=== PATIENT | female | born 1970 ===

== ENCOUNTER 2019-10-17 14:00 | Emergency (ER) | payer SELFPAY ==
[2019-10-17 14:18] VITALS: BP 87/63; PULSE 104; RESP 16; TEMP 36.7; O2SAT 100
--- NOTE | 2019-10-17 14:28 | ED.DENTAL ---
HPI - Dental/Oral General Chief complaint: Dental/Oral Stated complaint: tooth abscess Time Seen by Provider: 10/17/19 14:18 Source: patient and RN notes reviewed Mode of arrival: ambulatory Limitations: no limitations History of Present Illness HPI Narrative: Patient presents today complaining of pain to upper anterior tooth with swelling to the gums x3 days. She noticed diffuse swelling to the right side of her face since yesterday that has been worsening since onset. Denies fever, shortness of breath, difficulty swallowing. She has been swishing with peroxide as well as taking ibuprofen, which has provided some relief. Patient does not currently have a dentist. MD Complaint: tooth pain Related Data Home Medications Medication Instructions Recorded Confirmed alprazolam 0.5 mg BID 10/17/19 10/17/19 amlodipine 2.5 mg PO DAILY 10/17/19 10/17/19 carvedilol 6.25 mg DAILY 10/17/19 10/17/19 hydrocodone-acetaminophen 1 tablet QID 10/17/19 10/17/19 Allergies Allergy/AdvReac Type Severity Reaction Status Date / Time No Known Allergies Allergy Unverified 11/23/16 12:43 Review of Systems Review of Systems: Narrative: CONSTITUTIONAL: Denies body aches, fever, chills, or sweats. EYES: Denies visual changes, redness, or discharge. ENT: Denies rhinorrhea, congestion, sore throat, or otalgia.+ Pain and facial swelling CARDIOVASCULAR: Denies chest pain, palpitations, or edema. RESPIRATORY: Denies cough or dyspnea. GASTROINTESTINAL: Denies abdominal pain, nausea, vomiting, or diarrhea. GENITOURINARY: Denies dysuria or hematuria. SKIN: Denies rash, itching, or wounds. MUSCULOSKELETAL: Denies back pain, joint pain, or myalgia. NEUROLOGIC: Denies headache, numbness, tingling, or weakness. PSYCH: Denies depression or anxiety. [facility] Past Medical History Medical History (Updated 10/17/19 @ 14:41 by Sandra Cortez, CUSTOMER SERVICE CORRESPONDENCE CLERK, ) COPD (chronic obstructive pulmonary disease) Hypertension Low back pain Social History Social History Gender identity (if verbalized by the patient): Female Comments At time of signature, I have reviewed and agree with nursing past medical, surgical, social and family history unless otherwise noted. Please see nursing chart for further information. There is no relevant family history pertinent to the presenting complaint Exam Narrative: Exam Narrative: GENERAL: Chronically ill-appearing, well-nourished, and in no acute distress. HEAD: Normocephalic, atraumatic. EYES: EOMI. No redness or drainage. Conjunctivae normal. ENT: Mucous membranes pink and moist. Nares clear. No rhinorrhea. Throat normal. Uvula midline. Obvious periapical abscess with moderate gum swelling adjacent to tooth #8. Moderate swelling of the right side of the face, extending below the right eye. No trismus or sublingual tenderness or swelling. NECK: Normal AROM. Supple. No lymphadenopathy. CHEST: No respiratory distress. Clear to auscultation. HEART: Regular rate and rhythm. No murmur appreciated. Normal peripheral pulses. EXTREMITIES: Normal range of motion. No edema. SKIN: Warm, dry, no rash. Capillary refill normal. Normal skin turgor. NEURO: No focal deficits. Alert and oriented x3. Gait steady. PSYCH: Normal affect. No signs of depression or anxiety. Course Vital Signs Vital signs: Vital Signs Temperature 98.1 F 10/17/19 14:18 Pulse Rate 104 H 10/17/19 14:18 Respiratory Rate 16 10/17/19 14:18 Blood Pressure 87/63 L 10/17/19 14:18 Pulse Oximetry 100 10/17/19 14:18 Temperature 98.1 F 10/17/19 14:18 Pulse Rate 104 H 10/17/19 14:18 Respiratory Rate 16 10/17/19 14:18 Blood Pressure 92/64 L 10/17/19 14:36 Pulse Oximetry 100 10/17/19 14:18 Reviewed MDM - Dental/Oral Differential Diagnosis Differential diagnosis: Likely gingival abscess, dental caries, toothache, dental abscess and fracture of tooth Critical Care Time Critical Care Time Critical Care Time: No Discharge P
[2019-10-17 14:36] VITALS: BP 92/64
== END 2019-10-17 14:37 | disposition home or self-care (01) ==
PROVIDERS: Emergency Provider Nurse Practitioner
DX: K04.7 Periapical abscess without sinus (principal); J44.9 Chronic obstructive pulmonary disease, unspecified; I10 Essential (primary) hypertension
CPT/HCPCS: 99213; G0463

== ENCOUNTER 2024-06-30 20:10 | Emergency (ER) | payer OTHER, SELFPAY ==
[2024-06-30] VITALS (29 sets, daily range): BP systolic 100–169; BP diastolic 67–99; PULSE 71–106; RESP 11–21; TEMP 36–36.8; O2SAT 94–100
--- NOTE | ~2024-06-30 | CT_ITS ---
EXAMINATION: CTA brain carotid DATE: 06/30/2024 20:59 INDICATION: AMS; severe headache, sudden onset TECHNIQUE: Computed tomographic angiography (CTA) of the head and neck was performed with 100 mL Omni paque-350 intravenous contrast. Automated exposure control and iterative reconstruction technique wer e employed. The dose-length product was 1063.20 mGy-cm. Maximum intensity projection and volume rende red 3D-reconstructions were created by the technologist on a separate workstation. COMPARISON: CT brain, same date. FINDINGS: CTA HEAD: No large vessel occlusion, aneurysm, high flow vascular malformation, nidus or extravasation. The lef t distal vertebral artery terminates in a cerebellar artery, a normal variant. Patent cerebral veins. Symmetric parenchymal enhancement. CTA NECK: Aortic arch and proximal great vessels: Normal arch anatomy. Minimal atherosclerotic calcifications a t the visualized aortic arch and proximal great vessels. Right common carotid, carotid bifurcation, and internal carotid artery: No plaque.There is 0% stenosi s of the proximal right internal carotid artery relative to normal distal artery lumen diameter (NASC ET criteria). Left common carotid, carotid bifurcation, and internal carotid artery: No plaque.There is 0% stenosis of the proximal left internal carotid artery relative to normal distal artery lumen diameter (NASCET criteria). Vertebral arteries: No significant plaque or stenosis. Right vertebral artery is dominant, Other findings: Biapical pleural scarring. Emphysematous changes. Degenerative changes in the cervica l spine. IMPRESSION: No large vessel intracranial occlusion, high-grade intracranial stenosis, or aneurysm. No carotid or vertebral artery occlusion, dissection, or significant stenosis. Reviewed, dictated and finalized at location K. IMPRESSION: No large vessel intracranial occlusion, high-grade intracranial stenosis, or an eurysm. No carotid or vertebral artery occlusion, dissection, or significant stenosis.
--- NOTE | ~2024-06-30 | CT_ITS ---
EXAMINATION: CT brain wo con DATE: 06/30/2024 20:59 INDICATION: AMS . TECHNIQUE: Computed tomography (CT) of the head was performed without intravenous contrast. The mA wa s adjusted according to patient size. Iterative reconstruction technique was employed. The dose-lengt h product was 605.33 mGy-cm. COMPARISON: None. FINDINGS: No acute intracranial hemorrhage or extra-axial fluid collection. No hydrocephalus, mass, or herniation. No acute ischemic infarct. Unremarkable dural venous sinus attenuation. No acute osseous abnormality. The aerated spaces are clear. IMPRESSION: No acute intracranial process. Reviewed, dictated and finalized at location K.
--- OUTSIDE RECORDS SUMMARY | 2024-06-30 20:11 | XMS_ITS | Encounter Summary ---
Author Organization [facility] Address [address] [place] [address] Care Team Providers Care Sheet Rock Applicator Name Role Phone Unavailable Primary Care Provider Unavailabl e Encounter Details Date Type Department Care Team (Late st Contact Info) Description 03/03/2024 Results Follow-Up [facility] Heart and Vascular - [address] [facility] [address] [address] [facility] [address] [place] [address] [place] [address] [facility] [address] [place] [address] BRAIN NATRIURETIC PEPTIDE, BNP OR PROBNP Social History Tobacco Use Types Packs/Day Years Used Date Smoking Tobacco: Every Day Cigarettes Smokeless Tobacco: Never Alcohol Use Standard Drinks/Week Comments Yes 0 (1 standard drink = 0.6 oz pur e alcohol) occas Feeling Safe Answer Date Recorded Are you in a relationship wi th someone who hurts you emotionally and/or physically? 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 Gender Identity Not on file Sexual Orientation Not on file Occupation Industry Job Start Date Job End Date Not on file Not on file Not on file Not on file documented as of this encounter Plan of Treatment Upcoming Encounters Date Type Department Care Team (Late st Contact Info) Description 09/22/2024 8:45 AM CDT Office Visit [facility] Heart and Vascular - [address] [facility] [address] [place] [address] [place] [address] [facility] [address] [place] [address] 02/16/2025 10:45 AM MERCHANDISING MANAGER Office Visit [facility] Heart and Vascular - [address] [facility] [address] [place] [phone] [place] [address] [facility] [address] [place] [address] documented as of this encounter Visit Diagnoses Not on filedocumented in this encounter
--- OUTSIDE RECORDS SUMMARY | 2024-06-30 20:12 | XMS_ITS | Encounter Summary ---
Author Organization [facility] Address [address] [place] [address] Care Team Providers Care Geothermal Installer Name Role Phone Unavailable Primary Care Provider Unavailabl e Encounter Details Date Type Department Care Team (Late st Contact Info) Description 03/03/2024 Results Follow-Up [facility] Heart and Vascular - [address] [facility] [address] [address] [facility] [address] [place] [address] [place] [address] [facility] [address] [place], [place] [id number] BASIC METABOLIC PANEL, CBC WITHOUT DIFFERENTIAL, BASIC METABOLIC PANEL, CBC WITH DIFFERENTIAL Social History Tobacco Use Types Packs/Day Years [...] on file 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 T COATING MACHINE OPERATOR documented in this encounter Plan of Treatment Upcoming Encounters Date Type Department Care Team (Late st Contact Info) Description 09/22/2024 8:45 AM CDT Office Visit [facility] Heart and Vascular - [address] [phone] [place] [address] [address] 02/16/2025 10:45 AM PAINT COATING MACHINE OPERATOR Office Visit [facility] Heart and Vascular - [address] [phone] [place] [address] [address] documented as of this encounter Visit Diagnoses Not on filedocumented in this encounter
--- OUTSIDE RECORDS SUMMARY | 2024-06-30 20:12 | XMS_ITS | Encounter Summary ---
Author Organization [facility] Healthcare Address [address] [place] [address] Care Team Providers Care Flat Clothier Name Role Phone Reyna Guerra MD Unavailable [phone] Salvador Martinez MD Unavailable [phone] Andre Velarde MD Unavailable [phone] Parker Rubio MD Unavailable [phone] Karlene Jacobo AIRBRUSH ARTIST PHOTOGRAPHY Primary Care Provider [phone] Encounter Details Date Type Department Care Team (Late st Contact Info) Description 05/04/2024 Results Follow-Up [facility] Medical Group Pulmonology [address] [facility] [address] [place] [address] Lee Ann Johnson MD [address] [facility] 200 [place] [address] Portable/Home Sleep Study Social History Tobacco Use Types Packs/Day Years Used Date Smoking Tobacco: Every Day Cigarettes 0.5 33.1 Started: 1986; Last attempted to quit: 04/02/2019 Smokeless Tobacco: Never Alcohol Use Standard Drinks/Week Comments Yes 0 (1 standard drink = 0.6 oz pur e alcohol) AUDIT-C Answer Date Recorded Q1: How often do you have a drink containing alc ohol? Monthly or less 04/09/2024 Q2: How many drinks containi ng alcohol do you have on a typical day when you are drinking? 1 or 2 04/09/2024 Q3: How often do you have si x or more drinks on one occasion? 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 Gender Identity Not on file Sexual Orientation Not on file documented as of this encounter Plan of Treatment Scheduled Procedures Name Priority Associated Diagnoses Date/Ti me COLONOSCOPY Colon cancer screening documented as of this encounter Visit Diagnoses Not on filedocumented in this encounter Care Teams Flat Clothier Relationship Specialty Start Date End Date Karlene Jacobo NP [address] [place] [address] [place] [address] PCP - General Family Medicine 04/09/24 Reyna Guerra MD [address] [place] [address] [address] Nam[address] AND[address] [place] [address] Consulting Physician Obstetrics and Gynecology 01/27/19 Salvador Martinez MD [address] [facility] [address] [place] [address] Consulting Physician Rheumatology 09/04/18 Andre Velarde MD [address] [facility] [address] [place] [address] Referring Physician Psychiatry 09/28/19 [place] [address] [place] [address] Referring Physician Cardiovascular Disease 09/28/19 documented as of this encounter
--- OUTSIDE RECORDS SUMMARY | 2024-06-30 20:12 | XMS_ITS | Encounter Summary ---
Author Organization [facility] Address [address] [place] [address] Care Team Providers Care Digital Strategist Name Role Phone Michael Figueroa MD Primary Care Provider [phone] Encounter Details Date Type Department Care Team (Late st Contact Info) Description 05/10/2008 Outpatient Historical [facility], Authorized P NO ADDRESS ON FILE Bonnie Whitley MD NO ADDRESS ON FILE Alcoh Dep NEC/NOS, Unspec (CMS/HCC); Depressive Disorder, not Elsewhere Classified; Sedative, Hypnotic or Anxiolytic Dependence, Unspecified Abuse (CMS/HCC); Tobacco Use Disorder; Suicidal Ideation Social History Tobacco Use Types Packs/Day Years Used Date Smoking Tobacco: Never Assessed Comments Unknown Sex and Gender Information Value Date Recorded Sex Assigned at Not on file Legal Sex Female 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 Gender Identity Not on file Sexual Orientation Not on file documented as of this encounter Plan of Treatment Upcoming Encounters Date Type Department Care Team (Late st Contact Info) Description 09/22/2024 8:45 AM CDT Office Visit [facility] Heart and Vascular - [address] [facility] [address] [place] [phone] [place] [address] [address] [place] [address] 02/16/2025 10:45 AM SENIOR DIRECTOR MARKETING Office Visit [facility] Heart and Vascular - [address] [facility] [address] [place] [phone] [place] [address] [place] [address] documented as of this encounter Procedures Procedure Name Priority Date/Time Associated Diagnosis Comments POC GLUCOSE Routine 05/10/2008 10:56 AM CDT POC URINALYSIS DIPSTICK AUTOMATED Routine 05/10/2008 10:52 AM CDT POC , URINE Routine 05/10/2008 10:52 AM CDT DRUG SCREEN, URINE Stat 05/10/2008 10 :35 AM CDT documented in this encounter Results * (ABNORMAL) POC GLUCOSE (05/10/2008 10:56 AM CDT) GLUCOSE POC 126(H) 65 - 99 mg/dL [facility] Venous blood specimen (specimen) 05/10/2008 10:56 AM CDT 05/10/2008 10:56 AM CDT us Authorized P Er POINT OF CARE TESTING Final Resu lt INTERFACE SYSTEM Refer to clinic/hospital department [facility] CLIA# [id number] [address] [place] [address] * POC , URINE (05/10/2008 10:52 AM CDT) SPECIFIC GRAVITY UA 1.020 1.001 - 1.035 [facility] , URINE POC Negative Negative [facility] Urine specimen (specimen) 05/10/2008 10:52 AM CDT 05/10/2008 10:52 AM CDT us Authorized P Er POINT OF CARE TESTING Final Resu lt INTERFACE SYSTEM Refer to clinic/hospital department [facility] CLIA# [id number] [address] [place] [address] * (ABNORMAL) POC URINALYSIS DIPSTICK AUTOMATED (05/10/2008 10:52 AM CDT) PH UA 6.0 5.0 - 8.0 [facility] KETONES UA 1+ (Small)(A) Negative [facility] CLARITY UA Clear [facility] BLOOD UA Negative Negative [facility] PROTEIN UA 1+(A) Negative [facility] LEUKOCYTE ESTERASE UA 1+(A) Negative [facility] UROBILINOGEN UA 1+ (1 mg/dL) <=1 mg/dL [facility] SPECIFIC GRAVITY UA 1.020 1.001 - 1.030 [facility] GLUCOSE UA Negative Negative [facility] COLOR UA Yellow [facility] NITRITE UA Positive(A) Negative [facility] BILIRUBIN UA 1+(A) Negative [facility] 05/10/2008 10:5 2 AM CDT 05/10/2008 10:52 AM CDT us Authorized P Er POINT OF CARE TESTING Final Resu lt INTERFACE SYSTEM Refer to clinic/hospital department [facility] CLIA# [id number] [address] [place] [address] * DRUG SCREEN, URINE (05/10/2008 10:35 AM CDT) COMMENT, TOXICOLOGY See Separate Comment [facility] Comment: Urine sample was not handled as a legal specimen and was received without a chain of custody. The result should be used only for medical purposes. False positive and erroneous results can occur due to cross-reacting substances and other factors. Depending on the clinical context, confirmation of all presumptive positive results by a more specific alternate method is recommended. A negative result indicates the analyte, if present, is below the screening threshold. Drug Ref. Range Screening Threshold Amphetamines Negative 1000 ng/mL Barbiturates Negative 200 ng/mL Benzodiazepines Negative 300 ng/mL Cannabinoids Negative 50 ng/mL Cocaine Metabolites Negative 300 ng/mL Opiates Negative 300 ng/mL Phencyclidine Negative 25 ng/mL The cut-off threshold, known cross-reactive compounds, drugs,and specificity information for each of the urine drugs of abuse are available on the [facility] Intranet at: [email or web address] Select: Lab Policies & Procedures Select: Drugs of Abuse-[facility] To inquire about any potential cross-reactivity of a specific drug not listed at this site, please contact the Chemistry Lab at . AMPHETAMINE QUAL, URINE Negative Negative [facility] BARBITURATE QUAL, URINE Negative Negative [facility] BENZODIAZEPINE QUAL, URINE Presumptive Positive Negative [facility] CANNABINOIDS QUAL, URINE Presumptive Positive Negative [facility] COCAINE QUAL URINE Negative Negative [facility] OPIATE QUAL, URINE Negative Negative [facility] PCP QUAL, URINE Negative Negative [facility] Urine specimen (specimen) 05/10/2008 10:35 AM CDT 05/10/2008 11:01 AM CDT us Bonnie Whitley MD URINE ORDERABLES Edited INTERFACE SYSTEM Refer to clinic/hospital department [facility] CLIA# [id number] [address] [place] [address] documented in this encounter Visit Diagnoses Diagnosis Other and unspecified alcohol dependence, unspecified drinking behavior (CMS/HCC) Other and unspecified alcohol dependence, unspecified drinking behavior Depressive disorder, not elsewhere classified Sedative, hypnotic or anxiolytic dependence, unspecified (CMS/HCC) Sedative, hypnotic or anxiolytic dependence, unspecified Tobacco use disorder Suicidal ideation documented in this encounter Care Teams Digital Strategist Relationship Specialty Start Date End Date Michael Figueroa MD [address] [address] PCP - General Internal Medicine 02/08/24 02/10/24 documented as of this encounter
--- OUTSIDE RECORDS SUMMARY | 2024-06-30 20:12 | XMS_ITS | Referral Summary ---
Author Organization [facility] Address [address] [place] [address] Care Team Providers Care [employer] Member Name Role Phone Reyna Guerra MD Unavailable Salvador Martinez MD Unavailable Andre Velarde MD Unavailable [phone] Parker Rubio MD Unavailable Karlene Jacobo SPREADER BOX OPERATOR Primary Care Provider [phone] Encounters Date Type Department Care Team Description 06/16/2024 12:27 PM CDT - 06/16/2024 11:59 PM CDT Hospital Encounter [facility] Respiratory [address] [place] [address] Simple chronic bronchitis (HCC); Chronic systolic congestive heart failure (HCC); Cigarette nicotine dependence without complication Discharge Disposition: Discharge to home or self care 06/16/2024 12:10 PM CDT - 06/16/2024 11:59 PM CDT Hospital Encounter [facility] [address] [place] [address] Personal history of nicotine dependence Discharge Disposition: Discharge to home or self care 05/08/2024 9:30 AM CDT Office Visit [facility] Pulmonology [address] [place] [address] [address] [place] [address] Lee Ann Johnson MD LYNN (obstructive sleep apnea) (Primary Dx); Psychophysiological insomnia; Cigarette nicotine dependence without complication; Simple chronic bronchitis (HCC); Restless legs syndrome (RLS); Non-seasonal allergic rhinitis due to pollen 05/04/2024 Results Follow-Up [facility] Pulmonology [address] [place] [phone] Lee Ann Johnson MD Portable/Home Sleep Study 04/23/2024 [facility] Sleep Lab [address] [place] [address] Chelsi Reddy [facility] Sleep Study Ordered 04/20/2024 10:50 AM CDT - 04/20/2024 11:59 PM CDT Hospital Encounter [facility] [address] [facility] [address] [facility] [place] [place] [address] Hypersomnia, recurrent [G47.13] (Primary Dx); Chronic obstructive pulmonary disease, unspecified COPD type (HCC); Congestive heart failure, unspecified HF chronicity, unspecified heart failure type (HCC); Atrial fibrillation, unspecified type (HCC); Snoring; Other abnormalities of breathing Discharge Disposition: Discharge to home or self care 04/09/2024 2:30 PM PIN DRAFTER OPERATOR Office Visit [facility] Pulmonology [address] [place] [phone] Lee Ann Johnson MD Simple chronic bronchitis (HCC) (Primary Dx); Chronic systolic congestive heart failure (HCC); Cigarette nicotine dependence without complication; Personal history of nicotine dependence; Psychophysiological insomnia; LYNN (obstructive sleep apnea); Non-seasonal allergic rhinitis due to pollen from Last 3 Months Allergies Active Allergy Reactions Criticality Noted Date Comments Codeine Nausea only Low 10/22/2011 Metronidazole Hives Medium 09/10/2013 Medications nitroglycerin (NITROSTAT) 0.4 mg SL tablet 0 8 Active cyclobenzaprine (FLEXERIL) 10 mg tablet Take 1 tablet (10 mg total) by mouth 3 (three) times a day as needed for muscle spasms 30 tablet 9 Active albuterol HFA (PROVENTIL HFA,VENTOLIN HFA,PROAIR HFA) 90 mcg/actuation inhalerIndications :COPD, moderate (HCC) Inhale 2 puffs every 6 (six) hours as needed for wheezing or shortness of breath 1 each 11 2 Active Spiriva Respimat 2.5 mcg/actuation inhaler INHALE 2 PUFFS BY MOUTH ONCE DAILY. 4 g 3 Active traZODone (DESYREL) 50 mg tablet Take 1 tablet (50 mg total) by mouth nightly 30 tablet 1 3 Active rosuvastatin (CRESTOR) 20 mg tablet Take 1 tablet (20 mg total) by mouth daily 30 tablet 3 3 Active suvorexant (BELSOMRA) 10 mg tablet Take 1 tablet (10 mg total) by mouth daily 30 tablet 5 3 Active fluticasone propionate (FLONASE) 50 mcg/actuation nasal spray SHAKE LIQUID AND USE 2 SPRAYS IN EACH NOSTRIL DAILY 16 g 3 Active PARoxetine (PAXIL) 10 mg tablet TAKE 1 TABLET(10 MG) BY MOUTH EVERY MORNING 90 tablet 1 3 Active meloxicam (MOBIC) 15 mg tabletIndications: Primary osteoarthritis of left hand TAKE 1 TABLET(15 MG) BY MOUTH DAILY 30 tablet 3 3 Active carvediloL (COREG) 6.25 mg tablet TAKE 1 TABLET(6.25 MG) BY MOUTH TWICE DAILY 180 tablet 4 Active ezetimibe (ZETIA) 10 mg tablet Take 1 tablet (10 mg total) by mouth daily 5 Active buPROPion XL (WELLBUTRIN XL) 150 mg 24 hr tablet Take 1 tablet (150 mg total) by mouth daily 30 tablet 3 5 Active furosemide (LASIX) 20 mg tablet 4 Active Anoro Ellipta 62.5-25 mcg/actuation blister with device daily Active Active Problems Problem Noted Date Diagnosed Date LYNN (obstructive sleep apnea) 04/09/2024 Psychophysiological insomnia 04/09/2024 Personal history of nicotine dependence 04/09/19 Cigarette nicotine dependence without complicati on 04/09/2024 Simple chronic bronchitis 04/09/2024 Primary osteoarthritis of left hand 07/05/2022 Assessment & Plan (07/05/2022 4:28 PM CDT): Stable. Will continue meloxicam as prescribed. Alcohol use disorder, moderate, in controlled en vironment 03/13/2021 Assessment & Plan (03/13/2021 4:40 PM PIN DRAFTER OPERATOR): 1. Chronic, poorly controlled 2. Recommended decreased intake of alcohol, especially in the setting of benzodiazepines from her psychiatrist Restless legs syndrome (RLS) 03/13/2021 Assessment & Plan (03/13/2021 4:40 PM PIN DRAFTER OPERATOR): 1. Chronic, well controlled 2. Continue as needed ropinirole Neuropathy 12/29/2020 Assessment & Plan (03/13/2021 4:38 PM PIN DRAFTER OPERATOR): 1. Chronic, poorly controlled 2. Has MRI scheduled for tomorrow 3. They will have the imaging center send me the results as well as her temporary receptionist Assessment & Plan (02/27/2021 2:21 PM PIN DRAFTER OPERATOR): She complains of inability to dorsiflex her L foot accompanied by numbness throughout the foot, intermittent cold sensation, and a restless feeling in her distal LE. These symptoms have led her to fall on numerous occasions. Denies injury preceding symptom onset. NCS/EMG on 02/07 which showed left peroneal neuropathy and superimposed chronic left L5 radiculopathy. At this time will obtain MRI Lspine. Once again recommend she arrange for neuro evaluation, ultimately may need to see neurosurgery. Will defer scheduled follow up at this time, she will be called with MRI findings and recommendations. Assessment & Plan (12/29/2020 4:54 PM PIN DRAFTER OPERATOR): Chelsi returns today after having last been seen in April 2019. She complains of inability to dorsiflex her L foot accompanied by numbness throughout the foot, intermittent cold sensation, and a restless feeling in her distal LE. These symptoms have led her to fall on numerous occasions. Denies injury preceding symptom onset. Denies any other associated or new symptoms. Her exam is perplexing today due to its inconsistencies. At times she is unable to dorsiflex the foot but at other times she does. Diminished vibratory sense throughout the L foot. Normal pedal pulses. Her strength is intact throughout. 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 Ultimately she may require neurology evaluation. To begin evaluation, will check serologies as below as well as a LLE NCS/EMG. Plan for follow up in 2-3 weeks (once studies are done) and review results. Chronic pain syndrome 02/18/2020 Weight loss 09/29/2019 Chronic prescription opiate use 09/28/2019 Allergic rhinitis 04/02/2019 Sleep disturbance 12/26/2018 Assessment & Plan (07/05/2022 4:27 PM CDT): Chronic worsening problem. Continue Trazodone and Belsomra as prescribed. Fibromyalgia 12/01/2018 Assessment & Plan (12/28/2020 2:28 PM PIN DRAFTER OPERATOR): On Effexor 37.5 mg bid with improvement in her mood and pain, will continue. Will consider dose titration in the future if needed. Encouraged to participate in routine exercise such as [place] [employer]. Plan for follow up in 4 months or sooner as needed. Assessment & Plan (04/13/2019 2:06 PM PIN DRAFTER OPERATOR): On Effexor 37.5 mg bid with improvement in her mood and pain, will continue. Will consider dose titration in the future if needed. Encouraged to participate in routine exercise such as [place] [employer]. Plan for follow up in 4 months or sooner as needed. Assessment & Plan (01/12/2019 2:35 PM PIN DRAFTER OPERATOR): Previously treated with Lyrica with loss of response over time and amitriptyline which caused severe sedation. Cymbalta worsened depression. Now on Effexor 37.5 mg bid with improvement in her mood and pain. Admits that she still has widespread pain rated 5/10 but as it is significantly improved from prior and she wishes to limit her Effexor dose as able, will continue Effexor 37.5 mg bid and monitor. Will consider dose titration in the future. Plan for follow up in 3 months or sooner as needed. Assessment & Plan (12/08/2018 2:22 PM CDT): Previously treated with Lyrica with loss of response over time and amitriptyline which caused severe sedation. Last month started trial of Cymbalta, unfortunately pt notes intolerance due to worsening of depression. She took one dose of her mother's Effexor which she feels helped her pain and has since discussed this with her psychiatrist, whom she states approved a switch to Effexor. At this time will begin Effexor 37.5 mg bid and monitor response, follow up in 4-6 weeks to reassess. Polyarthralgia 10/02/2018 Overview (10/10/2018): US right hand/wrist (10/07/18): Mild effusions and power doppler on examination which will have to be correlated clinically. Marked synovial thickening in the wrist. No other significant synovial thickening identified. Grade 1 effusion and grade 1 power doppler in the wrist. No other significant effusions or power doppler activity identified. Xray bilat hands (10/10/18): Left hand: mild CMC OA, old ununited avulsion fracture of proximal phalanx of 2nd digit. Right hand: wnl Xray bilat feet (10/10/18): mild bilat 1st mtp joint degenerative changes Xray SI joints (10/10/18): mild/moderate sclerotic changes of right SI joint with joint space narrowing Assessment & Plan (10/20/2018 4:54 PM CDT): 48yoF with multiple painful joints and prolonged AM stiffness for 2+ hours each day. NSAIDs with moderate benefit and recent Medrol Dosepack with significant, though transient, relief. She notes a history of fibromyalgia, initially denied having been treated with gabapentin, Lyrica, Cymbalta, TCAs, or Savella in the past; today states that she has been prescribed Lyrica for the last 15 years, initially with significant response. Also states that she had been prescribed amitriptyline which caused severe sedation. Our workup shows unremarkable serologies to date, XR with degenerative changes, and ultrasound without significant inflammatory changes. At present suspect that her pain complaints are 2/2 an overlap of fibromyalgia and OA. As the lab received the specimen for her AVISE panel outside the allowed time frame, will redraw this today and pt will be called with results. If the AVISE is negative, then will likely recommend treatment with Cymbalta 30 mg once daily. Follow up in 6 weeks or sooner as needed. Assessment & Plan (10/02/2018 4:45 PM CDT): 48yoF with multiple painful joints and prolonged AM stiffness for 2+ hours each day. NSAIDs with moderate benefit and recent Medrol Dosepack with significant, though transient, relief. She notes a history of fibromyalgia, denies having been treated with gabapentin, Lyrica, Cymbalta, TCAs, or Savella in the past. By exam she has questionable swelling in a few joints but tenderness throughout most of her joints as well as soft tissue tenderness. Question possible overlap of an inflammatory arthritis with fibromyalgia and known OA. To fully evaluate will check appropriate serologies, xrays, and ultrasound with plan for follow up in 2 weeks to review results and to discuss treatment options. High risk medication use 09/19/2018 Hyperglycemia 09/23/2017 Generalized anxiety disorder 04/08/2017 Moderate major depression 04/08/2017 Assessment & Plan (07/05/2022 4:27 PM CDT): Chronic worsening problem. PHQ 9 score is 15. She denies SI/HI. Start paroxetine 10 mg daily. Hay fever 06/01/2016 Gastroesophageal reflux disease 11/24/2014 Menorrhagia with irregular cycle 08/03/2014 Tobacco use 08/03/2014 Assessment & Plan (09/18/2021 7:33 AM CDT): 1. Patient currently smokes 3-4 cigarettes a day 2. Advised patient to quit smoking and discussed its side effects 3. Active phase of smoking cessation 4. Discussed avoidance of smoking triggers and stress relieving techniques 5. Patient would not like to pursue medical management at this time. 6. Estimated quit date is 2021 7. Patient will f/u in 6 months 8. I spent 3 [id number]-[id number] minutes counseling patient regarding tobacco cessation Knee pain 05/04/2014 Congestive heart failure 06/27/2013 Overview (05/18/2016): CHF (congestive heart failure) Vitamin D deficiency 03/31/2012 Back pain 12/31/2011 COPD, moderate (CMS/HCC) 10/22/2011 Assessment & Plan (07/05/2022 4:26 PM CDT): Chronic stable condition. Will continue Spiriva and albuterol as needed. Smoking cessation advised. Assessment & Plan (05/19/2021 1:59 PM CDT): 1. Chronic, poorly controlled 2. 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 Chronic, poorly controlled 2. Will restart Spiriva in place order for albuterol inhaler Stress-induced cardiomyopathy 07/23/2011 Bipolar affective disorder 04/16/2010 Fibrocystic breast changes 04/16/2010 Immunizations Immunization Administration Dates Next Due Influenza, Quadrivalent, Louise l Culture-based MDCK, Antibiotic Free, Intramuscular 01/20/2018 Influenza, Quadrivalent, Spl it, Preservative Free, Intradermal 12/07/2016 Influenza, Quadrivalent, Spl it, Preservative Free, Intramuscular 12/26/2018,11/24/2014 Influenza, Trivalent, Preser vative Free, Intramuscular 02/10/2199,12/30/2012,12/29/2010 Influenza, Trivalent, Split, Preservative Free, Intradermal 12/07/2016,11/16/2015 Influenza, Unspecified 12/13/2020(Deferr ed: Patient Refused),11/25/2019(Deferred: Patient Refused),01/20/2018 Pneumococcal Conjugate PCV 13 05/04/2014 Pneumococcal Polysaccharide PPV23 11/14/2011 Tdap 07/05/2022,12/31/2011 Social History Tobacco Use Types Packs/Day Years Used Date Smoking Tobacco: Every Day Cigarettes 0.5 33.1 Started: 1986; Last attempted to quit: 04/02/2019 Smokeless Tobacco: Never Tobacco Cessation:Ready to Q uit: Not Asked; Counseling Given: Not Answered Alcohol Use Standard Drinks/Week Comments Yes 0 [...] on file Legal Sex Female 1:25 AM PIN DRAFTER OPERATOR Gender Identity Not on file Sexual Orientation Not on file Last Filed Vital Signs Vital Sign Reading Time Taken Comments Blood Pressure 138/85 05/08/2024 9:40 AM CDT Pulse 80 05/08/2024 9:40 AM CDT Temperature 35.9 C (96.7 F) 05/08/2024 9:40 AM CDT Respiratory Rate 18 05/08/2024 9:40 AM CDT Oxygen Saturation 99% 05/08/2024 9:40 AM CDT Inhaled Oxygen Concentration - - Weight 53.5 kg (118 lb) 06/16/2024 12:25 PM CDT Height 162.6 cm (5' 4 ) 06/16/2024 12:25 PM CDT Body Mass Index 20.25 06/16/2024 12:25 PM CDT Plan of Treatment Scheduled Procedures Name Priority Associated Diagnoses Date/Ti me COLONOSCOPY Colon cancer screening Procedures Procedure Name Priority Date/Time Associated Diagnosis Comments PULMONARY FUNCTION TEST (PFT) Routine 06/16/2024 1:35 PM CDT Simple chronic bronchitis (HCC) Chronic systolic congestive heart failure (HCC) Cigarette nicotine dependence without complication CT LUNG CANCER SCREENING Schedule Routine, Read Routine (OP Routine) 06/16/2024 12:23 PM CDT Personal history of nicotine dependence PORTABLE/HOME SLEEP STUDY Routine 05/03/2024 Chronic obstructive pulmonary disease, unspecified COPD type (HCC) Congestive heart failure, unspecified HF chronicity, unspecified heart failure type (HCC) Atrial fibrillation, unspecified type (HCC) Snoring Other abnormalities of breathing HEPATITIS PANEL, ACUTE Routine 12/29/2020 2:56 PM PIN DRAFTER OPERATOR DIAGNOSTIC MAMMOGRAM BILATERAL [place] Schedule Routine, Read Routine (OP Routine) 04/01/2020 1:53 PM PIN DRAFTER OPERATOR Breast pain Bleeding from breast GENITAL FLUID PAP SMEAR, THIN PREP AND HPV Routine 06/14/2016 7:00 PM CDT from Last 3 Months or Most Recently Relevant to Health Maintenance Results * Pulmonary Function Test - (06/16/2024 1:35 PM CDT) FVC POST 2.25 L 06/16/2024 3:53 PM CDT [facility] FEV1 POST 1.17 L 06/16/2024 3:53 PM CDT [facility] [id number] 51.80 % 06/16/2024 3:53 PM CDT [facility] EFR99-29% POST 0.48 L/s 06/16/2024 3:53 PM CDT [facility] PEF POST 2.21 L/s 06/16/2024 3:53 PM CDT [facility] DLCOc SB 9.98 ml/(min*mm Hg) 06/16/2024 3:53 PM CDT [facility] DLCO/VA PRE 2.71 ml/(min*mm Hg*L) 06/16/2024 3:53 PM CDT [facility] VA 3.68 L 06/16/2024 3:53 PM CDT [facility] TLC PRE 4.24 L 06/16/2024 3:53 PM CDT [facility] VC PRE 2.36 L 06/16/2024 3:53 PM CDT [facility] IC PRE 1.95 L 06/16/2024 3:53 PM CDT [facility] FRC PL PRE 2.25 L 06/16/2024 3:53 PM CDT [facility] ERV PRE 0.38 L 06/16/2024 3:53 PM CDT [facility] RV PRE 1.88 L 06/16/2024 3:53 PM CDT [facility] RAW PRE 10.96 cmH2O*s/L 06/16/2024 3:53 PM CDT [facility] VTG 2.36 L 06/16/2024 3:53 PM CDT [facility] FVC PRE 2.33 L 06/16/2024 3:53 PM CDT [facility] FEV1 PRE 1.14 L 06/16/2024 3:53 PM CDT [facility] [id number] 49.08 % 06/16/2024 3:53 PM CDT [facility] OIR05-87% PRE 0.50 L/s 06/16/2024 3:53 PM T [facility] PEF PRE 2.42 L/s 06/16/2024 3:53 PM T [facility] Anatomical Region Laterality Modality PFT 06/16/2024 12:3 5 PM CDT Narrative 06/16/2024 7:41 PM CDT The study showed good patient effort. Spirometry showed severe chronic obstructive pulmonary disease with no significant acute response to bronchodilators which should not preclude their usage. FVC was also reduced suggestive of concomitant restrictive/pseudo restrictive defect. Flow volume loops variable effort with severe airflow limitations. Lung volumes showed no restrictive defect indicating finding spirometry secondary to dynamic airway obstruction. ERV was reduced secondary to effort. Diffusion was severely reduced indicating severe ventilation/perfusion mismatch. DLCO/VA was also reduced. 6 minutes walk test showed no exercise-induced hypoxemia, patient walked for 1250 ft. No previous data to compare, clinical correlation is recommended. Electronically signed, Lee Ann Johnson MD,[facility], [facility] Pulmonary, Critical Care and Sleep Medicine us Lee Ann Johnson MD PFT ORDERABLES Final Resul t * CT Lung Cancer Screening (06/16/2024 12:23 PM CDT) Anatomical Region Laterality Modality Chest N/A Computed Tomogra phy 06/25/2024 10:2 5 AM CDT Narrative 06/25/2024 10:40 AM CDT EXAM DESCRIPTION: CT LUNG CANCER SCREENING REASON FOR STUDY: Screening CT of the chest in a current smoker with a 45.5 pack year smoking history. Additional history: None. TECHNIQUE: Low dose CT scan of the chest was performed without intravenous contrast using helical scanning technique. The exam extends from the lung apices through the lung bases. Automatic exposure control was used as a dose optimization technique. NOTE: This study was performed for the specific purposes of lung cancer screening and is not an alternative to diagnostic chest CT. RADIATION DOSE: CT dose index volume (CTDIvol) = 1.01 mGy COMPARISON: None FINDINGS: SMOKING RELATED LUNG DISEASE: There are [id number] emphysematous changes of lungs with scattered mild subsegmental atelectasis and scarring. There are scattered subtle ground-glass centrilobular airspace opacities in the bilateral lungs, which is likely due to smoking related respiratory bronchiolitis. There is biapical pleural thickening and scarring. There is no definite evidence of a pneumothorax. There are scattered mild bronchial wall thickening, which is likely related to mild chronic bronchitis/bronchiolitis. There is no definite evidence of a focal consolidation or pleural effusion. LUNG NODULES: There is an irregular 0.6 cm pulmonary nodule in the posterior right upper lobe, which may be related to the right apical pleural thickening and scarring (axial image 38). There is a 0.4 cm pulmonary nodule in the posteromedial right upper lobe (axial image 72). There is a 0.4 cm ground-glass pulmonary nodule in the anterolateral left upper lobe (axial image 99). CORONARY ARTERY CALCIFICATION: Not identified. OTHER: The heart size is normal. There is no definite evidence of pericardial effusion. There are minimal atherosclerotic changes of the thoracic aorta There is no definite unenhanced CT evidence of mediastinal, hilar, or axillary lymphadenopathy. There are scattered subcentimeter mediastinal lymph nodes noted with largest measuring 0.5 cm in the subcarinal region (axial image 133). There is small hiatal hernia. The bilateral adrenal glands are grossly symmetrical and unremarkable. There is a minimal to mild S shaped scoliotic curvature of the spine with mild degenerative changes. IMPRESSION: Scattered pulmonary nodules with the largest measuring up to 0.6 cm in the posterior right upper lobe, which may be related to the right apical pleural thickening and scarring. Short-term follow-up low-dose chest CT in 6 months is recommended to assess for stability as clinically indicated. Mild to moderate emphysematous changes of lungs with scattered mild subsegmental atelectasis and scarring. Scattered mild bronchial wall thickening, which is likely related to mild chronic bronchitis/bronchiolitis. Scattered subtle ground-glass centrilobular airspace opacities in the bilateral lungs, which is likely due to smoking related respiratory bronchiolitis. Lung-RADS category 3: Probably benign. Recommendation: Low dose CT of chest in 6 months. THIS IS AN ELECTRONICALLY VERIFIED FINAL REPORT 06/25/2024 10:40 AM - Electronically signed by Michael JAMESON T: Report ID: [id number] Reading Location: [id number] Procedure Note Michael Doll, DO - 06/25/2024 EXAM DESCRIPTION: CT LUNG CANCER SCREENING REASON FOR STUDY: Screening CT of the chest in a current smoker with a 45.5 pack year smoking history. Additional history: None. TECHNIQUE: Low dose CT scan of the chest was performed without intravenous contrast using helical scanning technique. The exam extends from the lung apices through the lung bases. Automatic exposure control was used as adose optimization technique. NOTE: This study was performed for the specific purposes of lung cancer screening and is not an alternative to diagnostic chest CT. RADIATION DOSE: CT dose index volume (CTDIvol) = 1.01 mGy COMPARISON: None FINDINGS: SMOKING RELATED LUNG DISEASE: There are [id number]-[id number] emphysematous changes of lungs with scattered mild subsegmentalatelectasis and scarring. There are scattered subtle ground-glass centrilobularairspace opacities in the bilateral lungs, which is likely due to smoking related respiratory bronchiolitis. There is biapical pleural thickening andscarring. There is no definite evidence of a pneumothorax. There are scatteredmild bronchial wall thickening, which is likely related to mild chronic bronchitis/bronchiolitis. There is no definite evidence of a focal consolidation or pleural effusion. LUNG NODULES: There is an irregular 0.6 cm pulmonary nodule in theposterior right upper lobe, which may be related to the right apical pleuralthickening and scarring (axial image 38). There is a 0.4 cm pulmonary nodule in the posteromedial right upper lobe (axial image 72). There is a 0.4 cm ground-glass pulmonary nodule in the anterolateral left upper lobe (axial image 99). CORONARY ARTERY CALCIFICATION: Not identified. OTHER: The heart size is normal. There is no definite evidence of pericardial effusion. There are minimal atherosclerotic changes of the thoracic aorta There is no definite unenhanced CT evidence of mediastinal, hilar, oraxillary lymphadenopathy. There are scattered subcentimeter mediastinal lymphnodes noted with largest measuring 0.5 cm in the subcarinal region (axial [id number]). There is small hiatal hernia. The bilateral adrenal glands are grossly symmetrical and unremarkable. There is a minimal to mild S shaped scoliotic curvature of the spine withmild degenerative changes. IMPRESSION: Scattered pulmonary nodules with the largest measuring up to 0.6 cm inthe posterior right upper lobe, which may be related to the right apicalpleural thickening and scarring. Short-term follow-up low-dose chest CT in 6months is recommended to assess for stability as clinically indicated. Mild to moderate emphysematous changes of lungs with scattered mild subsegmental atelectasis and scarring. Scattered mild bronchial wall thickening, which is likely related to mild chronic bronchitis/bronchiolitis. Scattered subtle ground-glass centrilobular airspace opacities in the bilateral lungs, which is likely due to smoking related respiratory bronchiolitis. Lung-RADS category 3: Probably benign. Recommendation: Low dose CT of chest in 6 months. THIS IS AN ELECTRONICALLY VERIFIED FINAL REPORT 06/25/2024 10:40 AM - Electronically signed by Michael Doll D.O. PS T: Report ID: [id number] Reading Location: [id number] us Lee Ann Johnson MD IMG CT PROCEDURES Final Res ult * Portable/Home Sleep Study (05/03/2024) Impressions Rober Browne MD - 05/03/2024 Chelsi Montanez Interpretation Completed: 05/03/2024 Home Sleep Testing Report Patient is a 53 y.o. , 115 lbs female. Patient was referred for diagnostic purposes. Patient underwent a diagnostic study utilizing an unattended, FDA-approved [employer] ApneaLink Air portable monitoring device. The patient was provided instruction of the device and its application by a registered radiology technologist at the [facility] / [facility]. The study included channels of heart rate, oxygen saturation, respiratory effort, respiratory airflow, snoring, and body position. The study was analyzed by a registered radiology technologist. The raw data was reviewed by a board-certified sleep physician. Tracing was of fair quality. 11 hours and 7 minutes of recording time present. 8 hours 19 minutes of monitoring time present. 9 hours and 22 minutes of oxygen saturation evaluation present. Using a 4% desaturation rule, the apnea-hypopnea index (AHI) was 2.7. 8 apneas were scored. 14 obstructive hypopneas were scored using a 4% desaturation rule for obstructive hypopnea. 9 minutes of desaturation below 88% noted. The lowest desaturation obtained was 83%. The oxygen-desaturation index was 10.4. Using a 3% desaturation rule for obstructive hypopnea, 41 were scored. Apnea-hypopnea index was 6.1 using a 3% desaturation rule. Positional findings were not present. Minimum pulse rate was 71; average pulse rate was 91; and maximum pulse rate was 133. Diagnostic Impression: A diagnosis of obstructive sleep apnea (LYNN) is not supported by this test because the AHI is less than 5 according to Medicare/Medicaid scoring guidelines of 4% desaturation. If clinical suspicion remains for LYNN, consider performing an in- lab polysomnogram, which is more sensitive. We recommend that the patient follow-up with the [facility] to further discuss these findings and treatment options. If the patient is not a patient of the [facility], the patient should follow-up with the referring physician to discuss these findings and for the subsequent plan of care. [image] Rober Browne MD Internal/Sleep Medicine [facility] at [facility] us Unknown Referring MD SLEEP CENTER ORDERABLES Fin al Result * Hepatitis panel, acute (12/29/2020 2:56 PM PIN DRAFTER OPERATOR) Hep A IgM NON-REACTI VE NON-REACT OLIVIA [facility] Comment: For additional information, please refer to http://education.StorkUp.com/faq/SOB866 (This link is being provided for informational/ educational purposes only.) HepBsAg NON-REACTI VE NON-REACT OLIVIA [facility] Hep B core IgM NON-REACTI VE NON-REACT OLIVIA [facility] Hep C Ab NON-REACTI VE NON-REACT OLIVIA [facility] SIGNAL TO CUT-OFF 0.01 <1.00 [facility] Comment: HCV antibody was non-reactive. There is no laboratory evidence of HCV infection. In most cases, no further action is required. However, if recent HCV exposure is suspected, a test for HCV RNA (test code 65016) is suggested. For additional information please refer to http://Matrix-Bio.StorkUp.com/faq/RNI73c8 (This link is being provided for informational/ educational purposes only.) 12/29/2020 2:56 PM PIN DRAFTER OPERATOR 12/29/2020 2:57 PM PIN DRAFTER OPERATOR Tee Adame MD LAB MICROBIOLOGY - GENERAL ORD ERABLES Final Result [facility] [address] [place] [address] * Genital fluid pap smear, thin prep and HPV (06/14/2016 7:00 PM CDT) Clinical information SEE NOTE CDR HISTORICAL RESULTS Comment:Information not prov ided LMP SEE NOTE CDR HISTORICAL RESULTS Comment:[id number] Previous Pap SEE NOTE CDR HISTORICAL RESULTS Comment:INFORMATION NOT PROV IDED Previous biopsy SEE NOTE CDR HISTORICAL RESULTS Comment:INFORMATION NOT PROV IDED Referral specimen source SEE NOTE CDR HISTORICAL RESULTS Comment:Cervix, Endocervix Statement of adequacy SEE NOTE CDR HISTORICAL RESULTS Comment: Satisfactory for evaluation. Endocervical/transformation zone component present. Referral specimen, interp SEE NOTE CDR HISTORICAL RESULTS Comment:Negative for intraep ithelial lesion or malignancy. Variable comment SEE NOTE CDR HISTORICAL RESULTS Comment: This case could not be evaluated with computer assisted technology. The slide was manually screened according to routine procedures. Human papillomavirus RNA, High Risk E6/E7 Not Detected Not Detected CDR HISTORICAL RESULTS Comment: This test was performed using the APTIMA HPV Assay ([employer] This assay detects E6/E7 viral messenger RNA (mRNA) from 14 high-risk HPV types (16,18,31,33,35,39,45,51,52,56,58,59,66,68). Genital 06/14/2016 7:00 PM CDT Narrative CDR HISTORICAL RESULTS - 06/21/2016 2:00 AM CDT Test performed at [facility] [address] Director: LEIGHTON YANG MD us Historical Provider LAB CYTOLOGY ORDERABLES F inal Result CDR HISTORICAL RESULTS from Last 3 Months or Most Recently Relevant to Health Maintenance Insurance MEDICARE [facility]IC[facility] [place] Care Teams Solar Field Installation Crew Member Relationship Specialty Start Date End Date Karlene Jacobo NP [address] [place] [address] [place] [address] PCP - General Family Medicine 04/09/24 Reyna Guerra MD [address] [place] [address] DR Namita ANDERSON [address] [place] [address] Consulting Physician Obstetrics and Gynecology 01/27/19 Salvador Martinez MD [address] [place] [address] Consulting Physician Rheumatology 09/04/18 Andre Velarde MD [address] [place] [address] Referring Physician Psychiatry 09/28/19 [place] [address] [place] [address] Referring Physician Cardiovascular Disease 09/28/19
--- OUTSIDE RECORDS SUMMARY | 2024-06-30 20:12 | XMS_ITS ---
Author Organization [facility] Address [address] [place] [address] Care Team Providers Care Automobile Body Customizer Name Role Phone Karlene Jacobo Primary Care Provider REASON FOR VISIT LM to R/S -mlr 3 month f/u Encounters Encounter Location Date Provider Diagnosis [place] [address] [place] [address] 06/08/2024 Karlene Jacobo Plan Of Treatment No Information Progress Notes * Chelsi MONTANEZ JDOB:1970 (53 yo F)Acc No.[id number]:06/08/2024 UNLOCKED PROGRESS NOTE Progress Notes Patient: Chelsi LEDESMA Provider: Layla Jacobo APRN :1970 A ge:53 Y S ex:Female Date:06/08/2024 Address:[address] [facility] Check In:12:47 PM PATHOLOGY LABORATORY AIDE Subjective: * Chief Complaints: * 1 . LM to R/S -mlr 3 month f/u. * Medical History: Objective: * Vitals: Assessment: Plan: * Treatment: * * Electronic signature of Koki Jacobo , [id number] on 06/30/2024 at 08:11 PM CDT Sign off status: Pending * Provider: Layla Jacobo APRN Date: 0 06/08/2024 Generated for Eitan carter/Cely/Ericitting on: 0 06/30/2024 08:11 PM CDT
--- OUTSIDE RECORDS SUMMARY | 2024-06-30 20:12 | XMS_ITS | Encounter Summary ---
Author Organization [facility] Address [address] [place] [address] Care Team Providers Care Bulk Fluids Handler Name Role Phone Michael Figueroa MD Primary Care Provider [phone] Encounter Details Date Type Department Care Team (Late st Contact Info) Description 05/12/2008 Outpatient Historical [facility] Sonu Rosenberg MD [address] [place] [address] Social History Tobacco Use Types Packs/Day Years Used Date Smoking Tobacco: Never Assessed Comments Unknown Sex and Gender Information Value Date Recorded Sex Assigned at Not on file Legal Sex Female 5:43 AM BODY COMPONENT ENGINEER Gender Identity Not on file Sexual Orientation Not on file documented as of this encounter Plan of Treatment Upcoming Encounters Date Type Department Care Team (Late st Contact Info) Description 09/22/2024 8:45 AM CDT Office Visit [facility] Vascular - [address] [facility] [address] [place] [address] [place] [address] [facility] [address] [place] [address] 02/16/2025 10:45 AM BODY COMPONENT ENGINEER Office Visit [facility] - [address] [facility] [address] [place] [address] [place] [address] [address] [facility] [address] [place] [address] documented as of this encounter Visit Diagnoses Not on filedocumented in this encounter Care Teams Bulk Fluids Handler Relationship Specialty Start Date End Date Michael Figueroa MD [address] [facility] [address] [place] [address] PCP - General Internal Medicine 02/08/24 02/10/24 documented as of this encounter
--- OUTSIDE RECORDS SUMMARY | 2024-06-30 20:12 | XMS_ITS | Clinical Summary ---
Author Organization [facility] Address [address] [place] [address] Phone Care Team Providers Care Network Security Consultant Name Role Phone Unavailable Primary Care Provider Unavailabl e Allergies Active Allergy Reactions Criticality Noted Date Comments Codeine Unknown 03/09/2010 Metronidazole Unknown High 08/04/2014 unknown Medications ALBUTEROL SULFATE INHALATION Take by inhalation. Active nitroglycerin (NITROSTAT) 0.4 mg Tablet, Sublingual SEE NOTES 25 Tablet 6 8 Active cyclobenzaprine (FLEXERIL) 10 mg tablet Take 10 mg by mouth. 9 Active HYDROcodone-fouzia taminophen (NORCO) 7.5-325 mg Tablet Take 1 Tablet by mouth. 0 Active suvorexant (Belsomra) 10 mg TabletIndicatio ns:Primary insomnia Take 10 mg by mouth daily at bedtime. 30 Tablet 2 0 Active rosuvastatin (Crestor) 20 mg tablet Take 1 Tablet (20 mg) by mouth daily. 90 Tablet 1 2 Active Additional Information Patient taking differently:20 mg OralDAILY AT BEDTIME, Reported on 03/19/2024 umeclidinium-vi lanteroL (Anoro Ellipta) 62.5-25 mcg/actuation Disk with Device Take by inhalation daily. Active aspirin (ECOTRIN EC) 81 mg Tablet, Delayed Release (E.C.) Take 81 mg by mouth daily. Active carvediloL (COREG) 6.25 mg tablet Take 1 Tablet (6.25 mg) by mouth 2 times daily. 180 Tablet 1 4 Active furosemide (LASIX) 20 mg tablet Take 1 Tablet (20 mg) by mouth 2 times daily. 180 Tablet 4 Active PARoxetine HCl (PAXIL) 10 mg tabletIndicatio ns:Generalized anxiety disorder,Mild episode of recurrent major depressive disorder Take 1 Tablet (10 mg) by mouth daily. 30 Tablet 1 4 Active ezetimibe (ZETIA) 10 mg tablet Take 1 Tablet (10 mg) by mouth daily. 90 Tablet 3 5 Active Active Problems Problem Noted Date Diagnosed Date Hx of coronary artery disease 02/07/2024 Takotsubo cardiomyopathy 03/10/2018 Tobacco abuse 03/10/2018 Severe recurrent major depre ssion without psychotic features 04/08/2017 Primary insomnia 04/08/2017 Generalized anxiety disorder 04/08/2017 Resolved Problems Problem Noted Date Diagnosed Date Resolved Date Syncope 02/07/2024 02/10/2024 Chest pain 02/07/2024 02/10/2024 Encounters Date Type Department Care Team Description 06/16/2024 External Device Data STL ABSTRACTION Provider, Abstract 06/09/2024 External Device Data STL ABSTRACTION Provider, Abstract 06/09/2024 External Device Data STL ABSTRACTION Provider, Abstract 06/09/2024 External Device Data STL ABSTRACTION Provider, Abstract 05/26/2024 External Device Data STL ABSTRACTION Provider, Abstract 05/26/2024 External Device Data STL ABSTRACTION Provider, Abstract 05/12/2024 External Device Data STL ABSTRACTION Provider, Abstract 05/05/2024 External Device Data STL ABSTRACTION Provider, Abstract 05/05/2024 External Device Data STL ABSTRACTION Provider, Abstract 04/15/2024 External Device Data STL ABSTRACTION Provider, Abstract 04/04/2024 10:55 AM FACE MAN - 04/04/2024 11:59 PM FACE MAN Hospital Encounter [facility] [place] [facility] [address] [facility] [address] [place] [address] Parker Rubio MD Discharge Disposition: Home or Self Care from Last 3 Months Family History Medical History Relation Name Comments Drug Abuse Mother Drug Abuse Son 1 Methamphetamine abuse Drug Abuse Son 2 Methamphetamine abuse Mental Retardation Son 3 Mild MR Relation Name Status Comments Mother Son 1 Son 2 Son 3 Social History Tobacco Use Types Packs/Day Years Used Date Smoking Tobacco: Every Day Cigarettes Smokeless Tobacco: Never Tobacco Cessation:Ready to Q uit: Not Asked; Counseling Given: Not Answered Alcohol Use Standard Drinks/Week Comments Yes 0 (1 standard drink = 0.6 oz pur e alcohol) occas Feeling Safe Answer Date Recorded Are you in a relationship wi th someone who hurts you emotionally and/or physically? No 02/07/2024 Food Insecurity Answer Date Recorded Patient needs follow up regardin 06/09/2024 Transportation Needs Answer Date Record ed Patient needs follow up regardin 06/09/2024 Housing Stability Answer Date Recorded Social/Environmental Concerns No concerns Utility Needs Answer Date Recorded Patient needs follow up regardin 06/09/2024 Comments No Sex and Gender Information Value Date Recorded Sex Assigned at Not on file Legal Sex Female 5:43 AM FACE MAN Gender Identity Not on file Sexual Orientation Not on file Occupation Industry Job Start Date Job End Date Not on file Not on file Not on file Not on file Last Filed Vital Signs Vital Sign Reading Time Taken Comments Blood Pressure 116/77 03/19/2024 9:45 AM FACE MAN Pulse 81 03/19/2024 9:45 AM FACE MAN Temperature 36.5 C (97.7 F) 03/19/2024 7:00 AM FACE MAN Respiratory Rate 13 03/19/2024 9:45 AM FACE MAN Oxygen Saturation 96% 03/19/2024 9:45 AM FACE MAN Inhaled Oxygen Concentration - - Weight 50.8 kg (112 lb) 03/19/2024 7:00 AM FACE MAN Height 157.5 cm (5' 2 ) 03/19/2024 7:00 AM FACE MAN Body Mass Index 20.49 03/19/2024 7:00 AM FACE MAN Plan of Treatment Upcoming Encounters Date Type Department Care Team (Late st Contact Info) Description 09/22/2024 8:45 AM CDT Office Visit [facility] Heart and Vascular - [address] [place] [address] [place] [address] [place] [address] 02/16/2025 10:45 AM FACE MAN Office Visit [facility] - [address] [place] [address] [place] [address] [place] [address] Health Maintenance Due Date Last Done Comments HEPATITIS B VACCINES (1 of 3 - 19+ 3-dose series) 10/01/1991 HPV/Cotest (21-29) 1993 HPV/Cotest (30-65) 2002 COLORECTAL SCREENING 2017 Colorectal Cancer Screening 2017 FIT-DNA Q 3 years 2017 FIT/FOBT Q 1 year 2017 Flex Sig/CT Colonography Q 5 years 2017 CERVICAL CANCER SCREENING 02/23/2022 PAP SMEAR 02/23/2022 02/23/2019, 06/15/2016 ZOSTER VACCINE (1 of 2) 2022 INFLUENZA VACCINE (#1) 2023 9, 01/20/2018, 12/07/2016, Additional history exists COVID-19 Vaccine ( - 2023-2 5 season) 2023 09/05/2020, 08/06/2020 BREAST CANCER SCREENING 04/04/2025 04/04/19, 04/01/2020, 07/13/2016, Additional history exists DTAP/TDAP/TD VACCINES (3 - T d or Tdap) 07/05/2032 07/05/2022, 12/31/2011 Medical Devices Implanted Type Area Agriculture Mechanic Device Identifier Shelf Expiration Date Model / Serial / Lot Dev Closure Angioseal 6fr Vip [id number] - [id number] Implanted:Qty : 1 on 03/19/2024 by Parker Rubio MD at [facility] Closure Device N/A: Groin TERUMO- CARDIOVASC SYS [id number] 10/04/2024 [id number] / / [id number] Procedures Procedure Name Priority Date/Time Associated Diagnosis Comments MAMMO 3D LOUIS SCREEN BILAT W OR WO CAD Routine 04/04/2024 11:09 AM FACE MAN Visit for screening mammogram from Last 3 Months Results * MAMMO 3D LOUIS SCREEN BILAT W OR WO CAD (04/04/2024 11:09 AM FACE MAN) Anatomical Region Laterality Modality Breast Bilateral Mammography 04/04/2024 11:0 9 AM FACE MAN Impressions 04/04/2024 12:01 PM FACE MAN IMPRESSION: 1. No concerning findings. OVERALL FINAL ASSESSMENT: BI-RADS CATEGORY 1 - Negative. RECOMMENDATIONS: 1. Recommend annual mammography. DICTATION LOCATION: [facility] 04/04/2024 12:01 PM FACE MAN BILATERAL SCREENING DIGITAL MAMMOGRAM WITH 3D TOMOSYNTHESIS AND CAD DATE: 04/04/2024 11:09 AM HISTORY: Routine yearly screening exam. TECHNIQUE: Low-dose full-field digital breast tomosynthesis examination was performed of both breasts with 2D and 3D acquisitions. CAD was utilized. COMPARISON: March 2007 BREAST COMPOSITION: The breasts are heterogeneously dense, which may obscure small masses. FINDINGS: No concerning dominant masses, suspicious calcifications, parenchymal asymmetries or areas of architectural distortion are identified in either breast. Mammography Self Referral Provider MD DUYEN JAY Final Result from Last 3 Months Insurance Advance Directives For more information, please contact: [phone] * Full Code (Latest Code Status on File) Date Activated Date Inactivated Comments 02/07/2024 9:29 PM 02/10/2024 3:42 PM
--- OUTSIDE RECORDS SUMMARY | 2024-06-30 20:12 | XMS_ITS | Patient Health Record ---
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 Name Role Phone Karlene Jacobo Primary Care Provider Ilana Combs Unavailable [phone] Allergies Allergen (clinical drug ingredient) Drug/Non Drug Allergy documented on EMR Reaction Allergy Type Onset Date Status metronidazole Flagyl hives Drug Allergy Act marge Tylenol with Codeine #3 vomiting Drug Allergy Active Results Component Value Reference Range Notes CBC With Differential/Platel et* Reviewed date:07/22/2023 03:44:04 PM Interpretation:Normal Performing Lab:[facility] [place], [address] [facility], Phone - [phone], Director - Elroy Notes/Report: WBC 8.2 3.4-10.8 x10E3/uL RBC 4.26 3.77-5.28 x10E6/uL Hemoglobin 11.0 11.1-15.9 g/dL Hematocrit 35.0 34.0-46.6 % MCV 82 79-97 fL MCH 25.8 26.6-33.0 pg MCHC 31.4 31.5-35.7 g/dL RDW 16.0 11.7-15.4 % Platelets 387 150-450 x10E3/uL Neutrophils 69 Not Estab. % Lymphs 19 Not Estab. % Monocytes 10 Not Estab. % Eos 1 Not Estab. % Basos 1 Not Estab. % Neutrophils (Absolute) 5.7 1.4-7.0 x10E3/uL Lymphs (Absolute) 1.5 0.7-3.1 x10E3/uL Monocytes(Absolute) 0.8 0.1-0.9 x10E3/uL Eos (Absolute) 0.1 0.0-0.4 x10E3/uL Baso (Absolute) 0.1 0.0-0.2 x10E3/uL Immature Granulocytes 0 Not Estab. % Immature Grans (Abs) 0.0 0.0-0.1 x10E3/uL Hemoglobin A1c* Reviewed date:07/22/2023 03:44:04 PM Interpretation:Normal Performing Lab:[facility] [place], [address] [place] [address], Phone - [phone], Director - [facility] Notes/Report: Hemoglobin A1c 5.2 4.8-5.6 % . Prediabetes: 5.7 - 6.4 Diabetes: >6.4 Glycemic control for adults with diabetes: <7.0 CMP 14 Comprehensive Metabol ic Panel* Reviewed date:07/22/2023 03:44:04 PM Interpretation:Normal Performing Lab:[facility] [place], [address] [facility], Phone - [phone], Director - [facility] Notes/Report: Glucose 100 70-99 mg/dL BUN 8 6-24 mg/dL Creatinine 0.71 0.57-1.00 mg/dL eGFR 104 >59 mL/min/1.73 BUN/Creatinine Ratio 11 9-23 Sodium 137 134-144 mmol/L Potassium 4.6 3.5-5.2 mmol/L Chloride 99 96-106 mmol/L Carbon Dioxide, Total 23 20-29 mmol/L Calcium 9.9 8.7-10.2 mg/dL Protein, Total 7.4 6.0-8.5 g/dL Albumin 4.7 3.9-4.9 g/dL Globulin, Total 2.7 1.5-4.5 g/dL A/G Ratio 1.7 1.2-2.2 Bilirubin, Total 0.2 0.0-1.2 mg/dL Alkaline Phosphatase 102 44-121 IU/L AST (SGOT) 31 0-40 IU/L ALT (SGPT) 26 0-32 IU/L TSH Rfx on Abnormal to Free T4 Reviewed date:07/22/2023 03:44:04 PM Interpretation:Normal Performing Lab:[facility], Phone - [phone], Director - [facility] Notes/Report: TSH 1.970 0.450-4.500 uIU/mL Lipid Panel* Reviewed date:07/22/2023 03:44:04 PM Interpretation:Normal Performing Lab:[address], Phone - [phone], Director - [facility] Notes/Report: Cholesterol, Total 181 100-199 mg/dL Triglycerides 93 0-149 mg/dL HDL Cholesterol 76 >39 mg/dL VLDL Cholesterol Bird 17 5-40 mg/dL LDL Chol Calc (NIH) 88 0-99 mg/dL Treponema pallidum Antibodie s Reviewed date:07/22/2023 03:44:04 PM Interpretation:Negative Performing Lab:[address], Phone - [phone], Director - [facility] Notes/Report: Treponema pallidum Antibodies Non Reactive Non Reactive HIV Screen *HIV 1, 2 Ab, p24 Ag ([id number]) Reviewed date:07/22/2023 03:44:04 PM Interpretation:Negative Performing Lab:[address], Phone - [phone], Director - [facility] Notes/Report: HIV Ab/p24 Ag Screen Non Reactive Non Reactive HIV Negative HIV-1/HIV-2 antibodies and HIV-1 p24 antigen were NOT detected. There is no laboratory evidence of HIV infection. Pap IG Aptima HPV Age Gdln, +CtNgTv ([id number]) Reviewed date:07/29/2023 03:08:29 PM Interpretation:Normal Performing Lab:[facility], [address] [place] [address], Phone - [phone], Director - Shawn Notes/Report: Clinical Information:[id number] Clinical Information:[id number] Age Gdln ACOG Testing 30-65 DIAGNOSIS: NEGATIVE FOR INTRAEPITHELIAL LESION OR MALIGNANCY. Specimen adequacy: Satisfactory for evaluation. Endocervical and/or squamous metaplastic cells (endocervical component) are present. Clinician provided ICD10: Z0 1.419 Performed by: Bridgette Suggs , Chef Teacher (ASCP) . . Note: The Pap smear is a screening test designed to aid in the detection of premalignant and malignant conditions of the uterine cervix. It is not a diagnostic procedure and should not be used as the sole means of detecting cervical cancer. Both false-positive and false-negative reports do occur. . Test Methodology: This liquid based ThinPrep(R) pap test was screened with the use of an image guided system. HPV Aptima Negative Negative This nucleic acid amplification test detects fourteen high-risk HPV types (16,18,31,33,35,39,45,51,52 ,56,58,59,66,68) without differentiation. HPV Genotype Reflex Criteria not met, HPV Genotype not performed. Chlamydia, Nuc. Acid Amp Negative Negative Gonococcus, Nuc. Acid Amp Negative Negative Trich vag by MATT Negative Negative PDF Report Reviewed date:07/29/2023 03:08:29 PM Interpretation: Performing Lab:[facility], [address] [place] [address], Phone - [phone], Director - Shawn Notes/Report: Clinical Information:[id number] PDF Report1 [facility] Plus (VG+) (655303) Reviewed date:07/29/2023 03:08:28 PM Interpretation:Negative Performing Lab:[facility], [address] [place] [address], Phone - [phone], Director - immanuel Notes/Report: Test(s) 724158- Atopobium vaginae; 621811- BVAB 2; 223155- Megasphaera 1 was developed and its performance characteristics determined by [facility]. It has not been cleared or approved by the Food and Drug Administration. Test(s) 395562-Mcihkbr albicans, MATT; 870256-Smpgmyf glabrata, MATT was developed and its performance characteristics determined by [facility]. It has not been cleared or approved by the Food and Drug Administration. Atopobium vaginae Low - 0 BVAB 2 Low - 0 Megasphaera 1 Low - 0 Calculate total score by adding the 3 individual bacterial vaginosis (BV) marker scores together. Total score is interpreted as follows: Total score 0-1: Indicates the absence of BV. Total score 2: Indeterminate for BV. Additional clinical data should be evaluated to establish a diagnosis. Total score 3-6: Indicates the presence of BV. Kellie albicans, MATT Negative Negative Kellie glabrata, MATT Negative Negative Trich vag by MATT Negative Negative Chlamydia trachomatis, MATT Negative Negative Neisseria gonorrhoeae, MATT Negative Negative C-Reactive Protein, Quant Reviewed date:01/21/2024 08:17:09 AM Interpretation:Normal Performing Lab:[facility] [place], [address] [facility], [place], Phone - [phone], Director - Elroy Notes/Report: C-Reactive Protein, Quant <1 0-10 mg/L Reason For Referral Reason colon cancer screeni ng Diagnosis 1 Screening for colon cancer (Z12.11) Referral Organization [facility] Referring Provider First Name Karlene Referring Provider Last Name Short Referring Provider [facility] Referred Provider Specialty Gastroentero logy General Notes Irene Dye RN 0 07/29/2023 03:28:19 PM > Successfully faxed referral order and pertinent pt. information to [facility]-GI, Dr. [place]. Pt. notified of referral information both by message sent via [employer] system and by letter sent via mail. Clinical Notes [facility]Gastroenterology, Dr. [place], [address], [place] [address], Referral Priority Routine Reason Hx. of osteoarthriti s, DDD, DJD Diagnosis 1 Osteoarthritis invol ving multiple joints on both sides of body (M15.9) Referral Organization [facility] Referring Provider First Name Karlene Referring Provider Last Name Short Referring Provider [facility] niki Referred Provider Specialty Rheumatology General Notes Irene Dye RN 0 07/29/2023 03:42:16 PM > Successfully faxed referral order and pertinent pt. information to [facility]. Pt. notified of referral information both by message sent via [employer] system and by letter sent via mail., Irene Dye RN 08/09/2023 01:15:20 PM > See pt. documents. Per specialist, pt. would not benefit from these services. Clinical Notes [facility], [facility], [address] [place] [address], [place] [address], New patient #: [phone], Current patient#: [phone] Referral Priority Routine Reason depression, insomnia Diagnosis 1 Depression (F32.9) Referral Organization [facility] Referring Provider First Name Karlene Referring Provider Last Name Short Referring Provider [facility] icine Referred Organization [facility] Referred Address [address], [place],[address],[place] Referred Provider Specialty Behavioral H ealt Clinical Notes Nettie Moreland 10:01:32 AM >HN PW contacted consumer regarding referral. Consumer is in agreement with the therapy referral. Consumer stated she wasn't expecting a call so soon because she had just talked to her provider yesterday about wanting a therapist. HN explained the therapy process and provided Central Access contact information with instructions. Consumer voiced understanding and had no additional questions at this time. Advised consumer to inform provider if any further assistance is warranted regarding this matter. Consumer agreed. Case addressed and closed. Referral Priority Routine Reason Rectal bleeding eval uation Diagnosis 1 Rectal bleeding (K62 .5) Referral Organization [facility] Referring Provider First Name Karlene Referring Provider Last Name Short Referring Provider [facility] icine Referred Provider Specialty Gastroentero logy General Notes Caitlin Lenz 09:24:18 AM >Referral faxed., Caitlin Lenz 01/22/2024 09:25:59 AM >Referral letter & message sent to client. Clinical Notes [facility] GI , [facility], [facility] [address], [place] [address], New Pt Phone: , Current Pt's: [phone], Referral Priority Routine Reason Positive PHQ9. Pt. n eeds assistance with transportation and arranging medical care Diagnosis 1 Depression (F32.9) Referral Organization [facility] Referring Provider First Name Karlene Referring Provider Last Name Short Referring Provider [facility] icine Referred Provider Specialty Behavioral H ealt General Notes Caitlin Lenz 10:31:13 AM >Update from Clients Jeseter:Pts daughter Jeanne left message requesting for a referral to be placed to Dr. Michael Payne who is based out of [facility], as pt has them in the past. Call back number for Jeanne corrigan [phone], did not see her on pts SHANELL. Call back number for pt is same as listed in chart., Caitlin Lenz 01/24/2024 02:36:50 PM >Referral faxed to [facility] per T.E request. Clinical Notes Rhonda Bryant 11:18:35 AM > Clinician has begun researching providers for GI that take client's insurance, as referral indicates client needs to schedule a colonoscopy soon. Clinician also researching facilities that accept client's insurance for mammograms, as she reported [facility] near her home does not take this insurance anymore. Clinician also beginning to research transportation for client via [employer]. Clinician will also plan to discuss referral to outpatient mental health therapy services with Derek due to noted moderate PHQ-9 score of 13. Clinician will plan to outreach client on 01/21/24 or 01/22/24 regarding referral and appropriate resources., Rhonda Bryant 01/24/2024 11:20:44 AM > Noted this referral for client after speaking with her regarding above request re: [facility]. Call back to client to discuss other resource needs (GI specialist taking her health plan, mammogram locations taking her health plan, transportation). Client did not answer, left message requesting call back., Rhonda Bryant 01/29/2024 11:03:40 AM > Call to client re: above referral needs. No answer, LM. Will send letter if no contact back within 24 hrs. , Rhonda Bryant 01/29/2024 11:03:40 AM > Resources sent to daughter Ela via email per request. No further needs identified, will remain available. Referral Priority Routine Reason Hx. of COPD,CHF. Rep orts increasing SOB Diagnosis 1 COPD (chronic obstru ctive pulmonary disease) (J44.9) Diagnosis 2 Congestive heart kwasi lure (I50.9) Referral Organization [facility] Referring Provider First Name Karlene Referring Provider Last Name Short Ref[facility] Referred Provider Specialty Pulmonology General Notes Caitlin Lenz 09:09:04 AM >Unable to reach anyone at [facility] Pulmonary to verify if they take clients insurance., Caitlin Lenz 02/18/2024 09:19:19 AM >Referral faxed to both [facility] Pul[facility] fax numbers., Caitlin Lenz 02/18/2024 09:56:49 AM >Both fax numbers failed to go through., Caitlin Lenz 02/18/2024 10:04:23 AM >[facility] takes clients insurance., Caitlin Lenz 02/18/2024 10:07:34 AM >Referral faxed., Caitlin Lenz 02/18/2024 10:07:42 AM >Referral letter & message sent to client. Clinical Notes [facility] @ [place], [place] [address], [facility] [place] [address], Current Pt , New Pt , Referral Priority Routine Medications Medication SIG (Take, Route, Frequency, Duration) Notes Start Date End Date Status Albuterol Sulfate HFA 108 (90 Base) MCG/ACT 1 puff as needed Inhalation every 4 hrs for 30 days As needed 07/18/2023 Active Anoro Ellipta 62.5-25 MCG/ACT INHALE 1 PUFF BY MOUTH EVERY DAY Inhalation Once a day for 30 days Active Carvedilol 6.25 MG 1 tablet with food Orally Twice a day for 30 days Active Rosuvastatin Calcium 20 MG 1 tablet Oral ly Once a day for 30 days Active HYDROcodone-Acetaminophen 7.5-325 MG 1 tablet as needed Orally every 6 hrs for 7 days As needed for pain 02/18/2024 Not-Taking Suvorexant 10 MG 1 tablet at bedtime as needed Orally Once a day As needed Not-Taking Aspirin 81 81 MG 1 tablet Orally Once a day Active Fluticasone Propionate 93 MCG/ACT 2 sprays (1 spray in each nostril) Nasally Twice a day for 30 days 07/18/2023 Not-Taking Furosemide 20 MG 1 tablet Orally Twic e daily Active PARoxetine HCl 10 MG TAKE 1 TABLET (10 M G) BY MOUTH DAILY. for 90 Active Nitroglycerin 0.4 MG 1 tablet under the tongue and allow to dissolve as needed. Take every 5 minutes up to 3 times if chest pain persists Sublingual Up to three times daily As needed Active Belsomra 10 MG 1 tablet at bedtime as needed Orally Once a day for 30 days 02/18/2024 Not-Taking Social History Tobacco Use: Social History Observation Description Date Details (start date - stop date) Current Smoker NA - NA Tobacco Control (Standard) Question Answer Notes Tobacco use: Current every day smoker Additional Findings: Tobacco user Light cigarett e smoker (1-9 cigs/day) Problems Problem Type SNOMED Code ICD Code Onset Dates Problem Status W/U Status Risk Notes Problem Tobacco user (659822087) Nicotine dependence, unspecified, uncomplicated (F17.200) Active confirmed Problem Takotsubo syndrome (414050924) Takotsubo syndrome (I51.81) Active confirmed Problem Fibromyalgia (621719951) Fibromyalgia (M79.7) Active confirmed Problem Hypertension (60089584) Hypertension (I10) Active confirmed Problem Coronary artery disease (43158850) Coronary artery disease (I25.10) Active confirmed Problem Depression (445318984) Depression (F32.9) Active confirmed Problem Insomnia (978916634) Insomnia (G47.00) Active confirmed Problem COPD - Chronic obstructive pulmonary disease (53923590) COPD (chronic obstructive pulmonary disease) (J44.9) Active confirmed Problem Congestive heart failure (03660729) Congestive heart failure (I50.9) Active confirmed Problem Myocardial infarction (32273922) Myocardial infarction (I21.3) Active confirmed 2013 Problem Osteoarthritis (261622731) Osteoarthritis involving multiple joints on both sides of body (M15.9) Active confirmed Vital Signs Heart Rate 93 /min 03/12/2024 Temperature 98.4 degrees Fahrenheit 02/13/2024 Respiratory Rate 16 /min 03/12/2024 Blood pressure diastolic 92 mm Hg 03/12/2024 Oximetry 95 % 03/12/2024 Height 62 in 03/12/2024 Blood pressure systolic 122 mm Hg 03/12/2024 Weight 116 lbs 03/12/2024 BMI 21.21 kg/m2 03/12/2024 Encounters Encounter Location Date Provider Diagnosis [address] [place] [address] 07/18/2023 Karlene Jacobo Establishing care wi th new doctor, encounter for Z71.89 ; Screening for deficiency anemia Z13.0 ; Screening for diabetes mellitus Z13.1 ; Screening for metabolic disorder Z13.228 ; Screening for thyroid disorder Z13.29 ; Screening for hyperlipidemia Z13.220 ; Screening for breast cancer Z12.39 ; Screening for colon cancer Z12.11 ; Exposure to potential infection Z20.9 ; COPD (chronic obstructive pulmonary disease) J44.9 ; Rhinorrhea J00 ; Nausea and vomiting R11.2 ; Hypertension I10 and Osteoarthritis involving multiple joints on both sides of body M15.9 [address] [place] [address] 07/18/2023 Ilana Combs [address] [place] [address] 07/25/2023 Karlene Jacobo Well woman exam with routine gynecological exam Z01.419 and Depression F32.9 [address] [place] [address] 01/20/2024 Karlene Jacobo Nicotine dependence, unspecified, uncomplicated F17.200 ; Follow-up exam Z09 ; Rhinorrhea J00 ; Joint pain M25.50 ; COPD (chronic obstructive pulmonary disease) J44.9 ; Rectal bleeding K62.5 ; Breast cancer screening Z12.39 and Depression F32.9 [address] [place] [address] 02/13/2024 Karlene Jacobo Nicotine dependence, unspecified, uncomplicated F17.200 ; Hospitalization within last 30 days Z92.89 ; COPD (chronic obstructive pulmonary disease) J44.9 ; Depression F32.9 ; Osteoarthritis involving multiple joints on both sides of body M15.9 ; Fibromyalgia M79.7 ; Congestive heart failure I50.9 ; Coronary artery disease I25.10 ; Takotsubo syndrome I51.81 and Myocardial infarction I21.3 [address] [place] [address] 03/12/2024 Karlene Jacobo Follow-up exam Z09 ; Congestive heart failure I50.9 ; Coronary artery disease I25.10 ; Insomnia G47.00 ; Depression F32.9 and Nicotine dependence, unspecified, uncomplicated F17.[address] [address] 07/22/2023 Karlene Jacobo [address] [address] 07/26/2023 Karlene Jacobo [address] [address] 07/29/2023 Karlene Jacobo [address] [address] 08/08/2023 Karlene Jacobo [address] [address] 08/13/2023 Karlene Jacobo COPD (chronic obstructive pulmonary disease) J44.[address] [address] 10/21/2023 Karlene Jacobo [address] [address] 01/17/[address] [address] 01/23/[address] [address] 02/07/[address] [address] 02/17/2024 Karlene Jacobo Insomnia G47.00 Assessments Encounter Date Diagnosis (ICD Code) Assessment Notes Treatment Notes Treatment Clinical Notes Section Notes 07/18/2023 Establishing care with new doctor, encounter for (ICD-10 - Z71.89) 07/18/2023 Screening for deficiency anemia (ICD-10 - Z13.0) 07/25/2023 Depression (ICD-10 - F32.9) 07/25/2023 Well woman exam with routine gynecological exam (ICD-10 - Z01.419) 08/13/2023 COPD (chronic obstructive pulmonary disease) (ICD-10 - J44.9) 01/20/2024 Nicotine dependence, unspecified, uncomplicated (ICD-10 - F17.200) 01/20/2024 Follow-up exam (ICD-10 - Z09) 02/13/2024 Nicotine dependence, unspecified, uncomplicated (ICD-10 - F17.200) 02/13/2024 Hospitalization within last 30 days (ICD-10 - Z92.89) 02/17/2024 Insomnia (ICD-10 - G47.00) 03/12/2024 Congestive heart failure (ICD-10 - I50.9) 03/12/2024 Follow-up exam (ICD-10 - Z09) 03/12/2024 Coronary artery disease (ICD-10 - I25.10) 02/13/2024 COPD (chronic obstructive pulmonary disease) (ICD-10 - J44.9) 01/20/2024 Rhinorrhea (ICD-10 - J00) 07/18/2023 Screening for diabetes mellitus (ICD-10 - Z13.1) 07/18/2023 Screening for metabolic disorder (ICD-10 - Z13.228) 01/20/2024 Joint pain (ICD-10 - M25.50) 02/13/2024 Depression (ICD-10 - F32.9) 03/12/2024 Insomnia (ICD-10 - G47.00) 03/12/2024 Depression (ICD-10 - F32.9) 01/20/2024 COPD (chronic obstructive pulmonary disease) (ICD-10 - J44.9) 02/13/2024 Osteoarthritis involving multiple joints on both sides of body (ICD-10 - M15.9) 07/18/2023 Screening for thyroid disorder (ICD-10 - Z13.29) 07/18/2023 Screening for hyperlipidemia (ICD-10 - Z13.220) 03/12/2024 Nicotine dependence, unspecified, uncomplicated (ICD-10 - F17.200) 02/13/2024 Fibromyalgia (ICD-10 - M79.7) 01/20/2024 Rectal bleeding (ICD-10 - K62.5) 01/20/2024 Breast cancer screening (ICD-10 - Z12.39) 02/13/2024 Congestive heart failure (ICD-10 - I50.9) 07/18/2023 Screening for breast cancer (ICD-10 - Z12.39) 07/18/2023 Screening for colon cancer (ICD-10 - Z12.11) 01/20/2024 Depression (ICD-10 - F32.9) 02/13/2024 Coronary artery disease (ICD-10 - I25.10) 02/13/2024 Takotsubo syndrome (ICD-10 - I51.81) 07/18/2023 Exposure to potential infection (ICD-10 - Z20.9) 07/18/2023 COPD (chronic obstructive pulmonary disease) (ICD-10 - J44.9) 02/13/2024 Myocardial infarction (ICD-10 - I21.3) 201207/18/2023 Rhinorrhea (ICD-10 - J00) 07/18/2023 Nausea and vomiting (ICD-10 - R11.2) 07/18/2023 Hypertension (ICD-10 - I10) 07/18/2023 Osteoarthritis involving multiple joints on both sides of body (ICD-10 - M15.9) Plan Of Treatment No Information Insurance Providers Payer Name Payer Address Payer Phone Subscriber Number Group Number Insured Name Patient Relationship to Insured Coverage Start Date Coverage End Date [facility] [address] [place] [address] [id number] Chelsi Montanez Self - patient is the insured 4 Medical (General) History Medical History History ICD Code COPD Osteoarthritis myocardial infarction hypertension degenerative joint disease degenerative disease lumbosacral spine narcolepsy Takotsubo cardiomyopathy Surgical History Surgery Date(Month/Year) 4x Hospitalization History Reason Date(Month/Year) myocardial infarction 2009
--- OUTSIDE RECORDS SUMMARY | 2024-06-30 20:12 | XMS_ITS | Clinical Summary ---
Author Organization [facility] Address [address] [place] [address] Care Team Providers Care Hospital Superintendent Name Role Phone Reyna Guerra MD Unavailable [phone] Salvador Martinez MD Unavailable Andre Velarde MD Unavailable [phone] Parker Rubio MD Unavailable Karlene Jacobo [employer]AIR [employer]AD [employer] Primary Care Provider [phone] Allergies Active Allergy Reactions Criticality Noted Date [...] 03/13/2021 Assessment & Plan (03/13/2021 4:40 PM HOROLOGIST): 1. Chronic, poorly controlled 2. Recommended decreased intake of alcohol, especially in the setting of benzodiazepines from her psychiatrist Restless legs syndrome (RLS) 03/13/2021 Assessment & Plan (03/13/2021 4:40 PM HOROLOGIST): 1. Chronic, well controlled 2. Continue as needed ropinirole Neuropathy 12/29/2020 Assessment & Plan (03/13/2021 4:38 PM HOROLOGIST): 1. Chronic, poorly controlled 2. Has MRI scheduled for tomorrow 3. They will have the imaging center send me the results as well as her grocery manager Assessment & Plan (02/27/2021 2:21 PM HOROLOGIST): She complains of inability to dorsiflex her [...] recommendations. Assessment & Plan (12/29/2020 4:54 PM HOROLOGIST): Chelsi returns today after having last been [...] 12/01/2018 Assessment & Plan (12/28/2020 2:28 PM HOROLOGIST): On Effexor 37.5 mg bid with improvement in her mood and pain, will continue. Will consider dose titration in the future if needed. Encouraged to participate in routine exercise such as [place]. Plan for follow up in 4 months or sooner as needed. Assessment & Plan (04/13/2019 2:06 PM HOROLOGIST): On Effexor 37.5 mg bid with improvement in her mood and pain, will continue. Will consider dose titration in the future if needed. Encouraged to participate in routine exercise such as [place]. Plan for follow up in 4 months or sooner as needed. Assessment & Plan (01/12/2019 2:35 PM HOROLOGIST): Previously treated with Lyrica with loss of [...] in 6 months 8. I spent 3 [id number] minutes counseling patient regarding tobacco cessation Knee [...] Chronic, poorly controlled 2. 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 Chronic, poorly controlled 2. Will restart Spiriva in place order for albuterol inhaler Stress-induced cardiomyopathy 07/23/2011 Bipolar affective disorder 04/16/2010 Fibrocystic breast changes 04/16/2010 Encounters Date Type Department Care Team Description 06/16/2024 12:27 PM CDT - 06/16/2024 11:59 PM CDT Hospital Encounter [facility] Respiratory [address] [place] [id number] Simple chronic bronchitis (HCC); Chronic systolic congestive heart failure (HCC); Cigarette nicotine dependence without complication Discharge Disposition: Discharge to home or self care 06/16/2024 12:10 PM CDT - 06/16/2024 11:59 PM CDT Hospital Encounter [facility] [address] [place] [address] Personal history of nicotine dependence Discharge Disposition: Discharge to home or self care 05/08/2024 9:30 AM CDT Office Visit [facility] Pulmonology [address] [place] [address] [place] [phone] Lee Ann Johnson MD LYNN (obstructive sleep apnea) (Primary Dx); Psychophysiological insomnia; Cigarette nicotine dependence without complication; Simple chronic bronchitis (HCC); Restless legs syndrome (RLS); Non-seasonal allergic rhinitis due to pollen 05/04/2024 Results Follow-Up [facility] Pulmonology [address] [place] [address] [address] [place] [address] Lee Ann Johnson MD Portable/Home Sleep Study 04/23/2024 Telephone [facility] [address] [place] [address] Chelsi Reddy, [facility] Sleep Study Ordered 04/20/2024 10:50 AM CDT - 04/20/2024 11:59 PM CDT Hospital Encounter [facility] [address] [facility] [address] [place] [address] Hypersomnia, recurrent [G47.13] (Primary Dx); Chronic obstructive pulmonary disease, unspecified COPD type (HCC); Congestive heart failure, unspecified HF chronicity, unspecified heart failure type (HCC); Atrial fibrillation, unspecified type (HCC); Snoring; Other abnormalities of breathing Discharge Disposition: Discharge to home or self care 04/09/2024 2:30 PM HOROLOGIST Office Visit [facility] Pulmonology [address] [facility] [address] [place] [address] Lee Ann Johnson MD Simple chronic bronchitis (HCC) (Primary Dx); Chronic systolic congestive heart failure (HCC); Cigarette nicotine dependence without complication; Personal history of nicotine dependence; Psychophysiological insomnia; LYNN (obstructive sleep apnea); Non-seasonal allergic rhinitis due to pollen from Last 3 Months Immunizations Immunization Administration Dates Next Due Influenza, [...] 05/04/2014 Pneumococcal Polysaccharide PPV23 11/14/2011 Tdap 07/05/2022,12/31/2011 Surgical History Surgery Date Site/Laterality Comments SECTION x4 BREAST CYST EXCISION x3 CERVICAL BIOPSY W/ LOOP ELECTRODE EXCISION COLPOSCOPY TUBAL LIGATION Medical History Medical History Date Comments COPD (chronic obstructive pulmonary disease) (HC C) DJD (degenerative joint disease) Anxiety CHF (congestive heart failure) (HCC) Broken heart syndrome Pain of hand Abnormal Pap smear of cervix Breast mass Fibrocystic breast Family History Medical History Relation Name Comments Coronary artery disease Maternal Grandfather Coronary artery disease Maternal Grandmother Arthritis Mother Hypertension Mother Leukemia Mother Mental illness Mother Breast cancer Other maternal great aunt Colon cancer Neg Hx Relation Name Status Comments Maternal Grandfather Maternal Grandmother Mother Other Social History Tobacco Use Types Packs/Day Years [...] on file Legal Sex Female 1:25 AM HOROLOGIST Gender Identity Not on file Sexual Orientation Not on file Obstetrics History Para Term AB IAB SAB Ectopic Multiple Livin g Live Births 6 4 Date Outcome GA Total Labor Labor/2nd/3rd Weight Sex Type Anes PTL Marisela A1 A5 Name Clin Para Para Para Para Comments ftcs x4, tab x1 son full term Daughter 6wks early Other 2 one month early both boys Last Filed Vital Signs Vital Sign Reading [...] Diagnoses Date/Ti me COLONOSCOPY Colon cancer screening Health Maintenance Due Date Last Done Comments Colon Cancer Screening-DNA Stool 1972 Hepatitis B Screening 1990 Cervical Cancer Screening 06/14/2017 06/14/2016 Regular Well Visit/Exam 18-64 09/07/2022, 06/30/2019, 06/30/2019, Additional history exists Pneumococcal vaccine <65 (3 of 3 - PCV20 or PCV21) 2022 05/04/2014, 11/14/2011 Zoster Vaccine (1 of 2) 2022 Depression Screening 07/06/2023 07/05/2022, 07/05/2022, 09/07/2021, Additional history exists Influenza Vaccine (Season Ended) 2024 02/10/2199, 12/26/2018, 01/20/2018, Additional history exists Lung Cancer Screening 12/13/2024 06/16/2024, 020 Breast Cancer Screening-Mammogram 04/04/2025 04/04/2024, 04/04/2024, 04/01/2020, Additional history exists DTaP/Tdap/Td Vaccine (3 - Td or Tdap) 07/05/2032 07/05/2022, 12/31/2011 Hepatitis C Screening Completed 12/29/2020, 013 Procedures Procedure Name Priority Date/Time Associated Diagnosis [...] HEPATITIS PANEL, ACUTE Routine 12/29/2020 2:56 PM HOROLOGIST DIAGNOSTIC MAMMOGRAM BILATERAL [place] Schedule Routine, Read Routine (OP Routine) 04/01/2020 1:53 PM HOROLOGIST Breast pain Bleeding from breast GENITAL FLUID PAP SMEAR, THIN PREP AND HPV Routine 06/14/2016 7:00 PM CDT from Last 3 Months or Most Recently Relevant to Health Maintenance Results * Pulmonary Function Test - (06/16/2024 1:35 PM CDT) FVC POST 2.25 L 06/16/2024 3:53 PM CDT [facility] FEV1 POST 1.17 L 06/16/2024 3:53 PM CDT [facility] [id number] 51.80 % 06/16/2024 3:53 PM CDT [facility] OOL53-70% POST 0.48 L/s 06/16/2024 3:53 PM CDT [facility] PEF POST 2.21 L/s 06/16/2024 3:53 PM CDT [facility] DLCOc SB 9.98 ml/(min*mm Hg) 06/16/2024 3:53 PM CDT [facility] DLCO/VA PRE 2.71 ml/(min*mm Hg*L) 06/16/2024 3:53 PM CDT [facility] VA 3.68 L 06/16/2024 3:53 PM CDT [facility] TLC PRE 4.24 L 06/16/2024 3:53 PM CDT [facility] VC PRE 2.36 L 06/16/2024 3:53 PM CDT [facility] IC PRE 1.95 L 06/16/2024 3:53 PM CDT [facility] FRC PL PRE 2.25 L 06/16/2024 3:53 PM CDT [facility] ERV PRE 0.38 L 06/16/2024 3:53 PM CDT [facility] RV PRE 1.88 L 06/16/2024 3:53 PM CDT [facility] RAW PRE 10.96 cmH2O*s/L 06/16/2024 3:53 PM CDT [facility] VTG 2.36 L 06/16/2024 3:53 PM CDT [facility] FVC PRE 2.33 L 06/16/2024 3:53 PM CDT [facility] FEV1 PRE 1.14 L 06/16/2024 3:53 PM CDT [facility] SNF2VAI-OEP 49.08 % 06/16/2024 3:53 PM CDT [facility] TYU97-16% PRE 0.50 L/s 06/16/2024 3:53 PM CDT [facility] PEF PRE 2.42 L/s 06/16/2024 3:53 PM CDT [facility] Anatomical Region Laterality Modality PFT 06/16/2024 12:3 [...] is recommended. Electronically signed, Lee Ann Johnson MD,[facility], [facility] Pulmonary, Critical Care and Sleep Medicine us [...] FINDINGS: SMOKING RELATED LUNG DISEASE: There are cafs-cs-joefjnhc emphysematous changes of lungs with scattered mild [...] Michael Doll D.O. PS T: Report ID: [id number] Reading Location: [id number] Procedure Note Michael Doll, DO - 06/25/2024 [...] FINDINGS: SMOKING RELATED LUNG DISEASE: There are vsmk-[id number]-[id number] emphysematous changes of lungs with scattered mild [...] 0.5 cm in the subcarinal region (axial ). There is small hiatal hernia. The bilateral [...] Michael Doll D.O. PS T: Report ID: [id number] Reading Location: [id number] us Lee Ann Johnson MD IMG CT PROCEDURES Final Res ult * Portable/Home Sleep Study (05/03/2024) Impressions Rober Browne MD - 05/03/2024 Chelsi Montanez Interpretation Completed: 05/03/2024 Home Sleep Testing Report Patient is a 53 y.o. , 115 lbs female. Patient was referred for diagnostic purposes. Patient underwent a diagnostic study utilizing an unattended, FDA-approved [employer]Box ApneaLink Air portable monitoring device. The patient was provided instruction of the device and its application by a registered molecular technologist at the [facility] / [facility]. The study included channels of heart rate, oxygen saturation, respiratory effort, respiratory airflow, snoring, and body position. The study was analyzed by a registered molecular technologist. The raw data was reviewed by [...] recommend that the patient follow-up with the [facility] to further discuss these findings and treatment options. If the patient is not a patient of the [facility], the patient should follow-up with the referring physician to discuss these findings and for the subsequent plan of care. [image] Rober Browne MD Internal/Sleep Medicine [facility] at [facility] us Unknown Referring MD SLEEP CENTER ORDERABLES Fin al Result * Hepatitis panel, acute (12/29/2020 2:56 PM HOROLOGIST) Hep A IgM NON-REACTI VE NON-REACT OLIVIA [facility] Comment: For additional information, please refer to http://education.[facility].com/faq/WJR526 (This link is being provided for informational/ [...] a test for HCV RNA (test code 54961) is suggested. For additional information please refer to http://[employer]/faq/NXF10h4 (This link is being provided for informational/ educational purposes only.) 12/29/2020 2:56 PM HOROLOGIST 12/29/2020 2:57 PM HOROLOGIST Tee Adame MD LAB MICROBIOLOGY - GENERAL ORD ERABLES Final Result [facility] [address] [place] [address] * Genital fluid pap smear, thin prep and HPV (06/14/2016 7:00 PM CDT) Clinical information SEE NOTE CDR HISTORICAL RESULTS Comment:Information not prov ided LMP SEE NOTE CDR HISTORICAL RESULTS Comment:[id number] Previous Pap SEE NOTE CDR HISTORICAL RESULTS [...] was performed using the APTIMA HPV Assay ([employer] This assay detects E6/E7 viral messenger RNA (mRNA) from 14 high-risk HPV types (16,18,31,33,35,39,45,51,52,56,58,59,66,68). Genital 06/14/2016 7:00 PM CDT Narrative CDR HISTORICAL RESULTS - 06/21/2016 2:00 AM CDT Test performed at [facility] [address] Director: LEIGHTON YANG MD us Historical Provider LAB CYTOLOGY ORDERABLES F inal Result CDR HISTORICAL RESULTS from Last 3 Months or Most Recently Relevant to Health Maintenance Insurance MEDIC[facility] [place] Care Teams Hospital Superintendent Relationship Specialty Start Date End Date Karlene Jacobo NP [address] [place] [address] [place] [address] PCP - General Family Medicine 04/09/24 Reyna Guerra MD [address] [place] [address] [address] Namita [address] [place] [address] Consulting Physician Obstetrics and Gynecology 01/27/19 Salvador Martinez MD [address] [place] [address] Consulting Physician Rheumatology 09/04/18 Andre Velarde MD [address] [place] [address] Referring Physician Psychiatry 09/28/[place] [address] [place] [address] Referring Physician Cardiovascular Disease 09/28/19
--- NOTE | 2024-06-30 20:18 | ECG_ITS ---
Test Date: 2024-06-30 20:18:32 Measurements Intervals [place] Rate: 76 P: 8 HI: 159 QRS: 15 QRSD: 108 T: 61 QT: 399 QTc: 450 Interpretive Statements SINUS RHYTHM INCOMPLETE RIGHT BUNDLE BRANCH BLOCK [90+ ms QRS DURATION, TERMINAL R IN V1/V2, 40+ ms S IN I/aVL/V4/V5/V6] ABNORMAL ECG No previous ECG available for comparison Electronically Signed On 07-01-2024 08:21:55 CDT by Michael Austin M.D.
[2024-06-30 20:23] LABS: Glucose Point of Care 93 mg/dl (65-105)
[2024-06-30 20:41] LABS: BEDSIDEPREGUCG Negative (Negative)
[2024-06-30 20:41] LABS: Basophils Absolute Auto 0.1 K/mm3 (0.0-0.1); Basophils Percent Auto 0.9 % (0.2-1.2); Eosinophils Absolute Auto 0.1 K/mm3 (0-0.3); Eosinophils Percent Auto 0.9 % (0-4.4); Hematocrit 35.3 % (37.0-47.0); Immature Granulocyte Absolute 0.03 K/mm3 (0.00-0.031); Immature Granulocyte Percent A 0.3 % (0-0.5); Lymphocytes Absolute Auto 2.83 K/mm3 (0.9-3.2); Lymphocytes Percent Auto 26.9 % (18.3-44.2); Mean Corpuscular HGB Conc 31.2 g/dl (32-36); Mean Corpuscular Volume 83.5 fl (80-100); Monocytes Absolute Auto 0.8 K/mm3 (0.1-0.6); Monocytes Percent Auto 7.6 % (2.6-8.5); Neutrophils Absolute Auto 6.7 K/mm3 (1.3-6.7); Neutrophils Percent Auto 63.4 % (45.5-73.1); Platelet Count Result 311 k/mm3 (150-375); Red Blood Count 4.23 M/mm3 (4.2-5.4); Red Cell Distribution Width 17.5 % (11.5-14.5); White Blood Count 10.5 K/mm3 (4.5-10.0)
[2024-06-30 20:44] LABS: Estimated CRCL calculation 63 ml/min; Estimated Glomerular Filt Rate > 60
[2024-06-30 20:50] LABS: Add Urine Microscopic? YES; Appearance Urine Clear (Clear); Bacteria Urine 1+ /hpf; Bilirubin Urine Negative (Negative); Blood Urine Negative (Negative); Color Urine Yellow (Yellow); Glucose Urine UA Negative (Negative); Ketones Urine Negative (Negative); Leukocyte Esterase Ur Trace LEU/UL (Negative); Need Manual Microscopic Reviewed; Nitrate Urine Negative (Negative); Non Pathogenic Casts 0-2; Protein Urine Negative (Negative); RBC Urine 0-2 /hpf (0-2); Specific Grav Ur 1.003 (1.001-1.035); Squamous Epithelial Cell Urine None Seen /hpf (Few); Urobilinogen Urine 0.2 mg/dL (<2.0); WBC Urine 0-5 /hpf (0-3)
[2024-06-30 20:52] LABS: Alanine Aminotransferase 35 U/L (6-35); Albumin Level 4.9 g/dL (3.5-5.1); Alkaline Phosphatase 96 U/L (38-126); Anion Gap 14 mmol/L (4-12); Aspartate Amino Transferase 53 U/L (14-36); Bilirubin,Total 0.4 mg/dL (0.2-1.3); Blood Urea Nitrogen 6 mg/dL (7-17); Calcium 8.7 mg/dL (8.4-10.2); Carbon Dioxide 20 mmol/L (22-30); Chloride 102 mmol/L (98-107); Estimated CRCL calculation 91 ml/min; Estimated Glomerular Filt Rate > 60; Glucose 84 mg/dL (65-110); Potassium 3.8 mmol/L (3.4-5.0); Sodium 136 mmol/L (137-145)
[2024-06-30 20:59] LABS: Prothrombin Time 13.5 Seconds (11.1-14.7)
--- NOTE | 2024-06-30 20:59 | PC.NURSE ---
vrbo to give ativan 0.25ml and may give a second dose of 0.25ml (total up to 1mg)
[2024-06-30 21:00] LABS: Partial Thromboplastin Time 27.1 Seconds (22.3-36.8)
[2024-06-30] MEDS: LORazepam INJ (*CRX) 2 MG/ML VIAL 1 MG IV PUSH (21:00)
[2024-06-30 22:49] LABS: Troponin I < 0.012 ng/mL (0.000-0.034)
[2024-06-30 22:51] LABS: Ethanol 190 mg/dL (<10)
--- NOTE | 2024-06-30 23:21 | ED.AMS ---
HPI - Altered Mental Status General Chief Complaint: Altered Mental Status Stated Complaint: altered Time Seen by Provider: 06/30/24 20:18 History of Present Illness HPI narrative: Patient was having 4-5 alcoholic drinks with son outside when he states her tongue suddenly went up and she became unresponsive. They state this has happened in the past, that she has cardiac issues as well as seizures. Related Data Home Medications ?Medication ?Instructions ?Recorded ?Confirmed ?Last Taken ?Type alprazolam 0.5 mg tablet 0.5 mg BID 10/17/19 10/17/19 Unknown History amlodipine 2.5 mg tablet 2.5 mg PO DAILY 10/17/19 10/17/19 Unknown History carvedilol 6.25 mg tablet 6.25 mg DAILY 10/17/19 10/17/19 Unknown History hydrocodone 7.5 mg-acetaminophen 1 tablet QID 10/17/19 10/17/19 Unknown History 325 mg tablet Allergies Allergy/AdvReac Type Severity Reaction Status Date / Time No Known Allergies Allergy Unverified 11/23/16 12:43 Review of Systems Review of Systems: All systems reviewed & are unremarkable except as noted in HPI and below PMFSH Past Medical History Medical History (Updated 07/01/24 @ 00:01 by Background Daemon) COPD (chronic obstructive pulmonary disease) Hypertension Low back pain Social History Social History Gender identity (if verbalized by the patient): Female Exam Narrative: EXAMINATION OF ORGAN SYSTEMS/BODY AREAS: Constitutional: Vital signs per nursing GENERAL: Eyes closed HEAD: Normal with no signs of head trauma. EYES: PERRL; no gaze deviation ENT: Hearing grossly intact LUNGS: Nonlabored breathing. HEART: [Regular rate and rhythm] ABD: [Soft], [nontender to palpation] EXT: No obvious deformity SKIN: [No rashes or lesions.] NEURO: [Slowly follows commands including moving all extremities to command but does not consistently draw back with noxious applied stimuli; answers questions slowly. No gross focal sensory or strength deficits.] Course Vital Signs Vital signs: Vital Signs Temperature 96.8 F L 06/30/24 20:11 Pulse Rate 91 06/30/24 20:11 Respiratory Rate 16 06/30/24 20:11 Blood Pressure 169/85 H 06/30/24 20:11 Pulse Oximetry 99 06/30/24 20:11 Oxygen Delivery Room Air 06/30/24 20:11 Temperature 98.3 F 06/30/24 23:40 Pulse Rate 83 06/30/24 23:40 Respiratory Rate 20 06/30/24 23:40 Blood Pressure 100/73 06/30/24 23:40 Pulse Oximetry 94 06/30/24 23:40 Oxygen Delivery Room Air 06/30/24 20:42 MDM - Altered Mental Status MDM Narrative Medical decision making narrative: Patient with history of alcohol use disorder, possible seizures, cardiac issues, presents here with episode of altered mental status/unresponsiveness. On exam she is still following commands and answering some questions but otherwise seems almost catatonic. Workup for altered mental status initiated immediately including CTA head and neck, which are thankfully negative. EKG on my independent interpretation shows sinus rhythm rate 76, DE 159, QRS 1 awake, QTC 450, normal axis, no ST elevations or depressions or signs of acute ischemia or arrhythmia. When she returned from CT she had become even more responsive. At this point I did give a dose of Ativan 1 mg IV, after which she is now back to her baseline, answering questions appropriately, smiling and asking for food. Discussed with family who state that this has happened in the past, she feels completely fine now, I did consider possible withdrawal however she has no withdrawal symptoms, no shakes, her alcohol level is 200. Did also consider possible seizure, she has had this in the past, I did discuss with patient and family about admission for further workup, they would really rather go home and follow-up with neurologist and neck band setter and do not want to stay here. They understand the risks and benefits of this, as her daughter is medical, I have discussed this with our neurologist on-call, we can start Keppra for possible seizures at this time until she can see a neurologist and have let them know that if they changed their mind about admission they can always return to the emergency room. Patient this time is speaking with clear speech, ambulating steadily to the bathroom, alert and oriented x4, clinically sober, and capable of making her own decisions. Lab Data 06/30/24 20:25 06/30/24 20:43 Labs: Lab Results 06/30/24 06/30/24 06/30/24 Range/Units 20:20 20:25 20:39 WBC 10.5 H (4.5-10.0) K/mm3 RBC 4.23 (4.2-5.4) M/mm3 Hgb 11.0 L (12.0-15.0) g/dL Hct 35.3 L (37.0-47.0) % MCV 83.5 (80-100) fl MCH 26.0 (26-34) pg MCHC 31.2 L (32-36) g/dl RDW 17.5 H (11.5-14.5) % Plt Count 311 (150-375) k/mm3 MPV 10.0 (7.4-10.4) fl Immature Gran % (Auto) 0.3 (0-0.5) % Neut % (Auto) 63.4 (45.5-73.1) % Lymph % (Auto) 26.9 (18.3-44.2) % [place] % (Auto) 7.6 (2.6-8.5) % Eos % (Auto) 0.9 (0-4.4) % Baso % (Auto) 0.9 (0.2-1.2) % Lymph # (Auto) 2.83 (0.9-3.2) K/mm3 [place] # (Auto) 0.8 H (0.1-0.6) K/mm3 Eos # (Auto) 0.1 (0-0.3) K/mm3 Baso # (Auto) 0.1 (0.0-0.1) K/mm3 Abs Immat Gran (auto) 0.03 (0.00-0.031) K/mm3 Absolute Neuts (auto) 6.7 (1.3-6.7) K/mm3 Absolute Nucleated RBC 0.000 (0.0-0.012) K/mm3 Nucleated RBC % 0.0 (0.0-0.2) % PT 13.5 (11.1-14.7) Seconds INR 1.0 APTT 27.1 (22.3-36.8) Seconds Sodium 136 L (137-145) mmol/L Potassium 3.8 (3.4-5.0) mmol/L Chloride 102 (98-107) mmol/L Carbon Dioxide 20 L (22-30) mmol/L Anion Gap 14 H (4-12) mmol/L BUN 6 L (7-17) mg/dL Creatinine 0.53 L (0.7-1.0) mg/dL Estim Creat Clear Calc 91 ml/min Estimated GFR > 60 (59 - ) Glucose 84 (65-110) mg/dL POC Capillary Glucose 93 (65-105) mg/dl Calcium 8.7 (8.4-10.2) mg/dL Total Bilirubin 0.4 (0.2-1.3) mg/dL AST 53 H (14-36) U/L ALT 35 (6-35) U/L Alkaline Phosphatase 96 (38-126) U/L Troponin I < 0.012 (0.000-0.034) ng/mL Total Protein 8.0 (6.3-8.2) g/dL Albumin 4.9 (3.5-5.1) g/dL Urine Color Yellow (Yellow) Urine Appearance Clear (Clear) Urine pH 6.0 (5.0-9.0) Ur Specific [place] 1.003 (1.001-1.035) Urine Protein Negative (Negative) mg/dL Urine Glucose (UA) Negative (Negative) mg/dL Urine Ketones Negative (Negative) mg/dL Ur Blood (Man) Negative (Negative) Urine Nitrate Negative (Negative) Urine Bilirubin Negative (Negative) Urine Urobilinogen 0.2 (<2.0) mg/dL Add Ur Microanalysis Reviewed Leukocyte Esterase Rfl Trace H (Negative) LIANA/UL Urine RBC 0-2 (0-2) /hpf Urine WBC 0-5 (0-3) /hpf Ur Squamous Epith Cells None seen (Few) /hpf Urine Bacteria 1+ H /hpf Urine Casts 0-2 POC Urine HCG, Qual Negative (Negative) Ethyl Alcohol 190 (<10) mg/dL 06/30/24 Range/Units 20:43 WBC (4.5-10.0) K/mm3 RBC (4.2-5.4) M/mm3 Hgb (12.0-15.0) g/dL Hct (37.0-47.0) % MCV (80-100) fl MCH (26-34) pg MCHC (32-36) g/dl RDW (11.5-14.5) % Plt Count (150-375) k/mm3 MPV (7.4-10.4) fl Immature Gran % (Auto) (0-0.5) % Neut % (Auto) (45.5-73.1) % Lymph % (Auto) (18.3-44.2) % [place] % (Auto) (2.6-8.5) % Eos % (Auto) (0-4.4) % Baso % (Auto) (0.2-1.2) % Lymph # (Auto) (0.9-3.2) K/mm3 [place] # (Auto) (0.1-0.6) K/mm3 Eos # (Auto) (0-0.3) K/mm3 Baso # (Auto) (0.0-0.1) K/mm3 Abs Immat Gran (auto) (0.00-0.031) K/mm3 Absolute Neuts (auto) (1.3-6.7) K/mm3 Absolute Nucleated RBC (0.0-0.012) K/mm3 Nucleated RBC % (0.0-0.2) % PT (11.1-14.7) Seconds INR APTT (22.3-36.8) Seconds Sodium (137-145) mmol/L Potassium (3.4-5.0) mmol/L Chloride (98-107) mmol/L Carbon Dioxide (22-30) mmol/L Anion Gap (4-12) mmol/L BUN (7-17) mg/dL Creatinine 0.80 (0.7-1.0) mg/dL Estim Creat Clear Calc 63 ml/min Estimated GFR > 60 (59 - ) Glucose (65-110) mg/dL POC Capillary Glucose (65-105) mg/dl Calcium (8.4-10.2) mg/dL Total Bilirubin (0.2-1.3) mg/dL AST (14-36) U/L ALT (6-35) U/L Alkaline Phosphatase (38-126) U/L Troponin I (0.000-0.034) ng/mL Total Protein (6.3-8.2) g/dL Albumin (3.5-5.1) g/dL Urine Color (Yellow) Urine Appearance (Clear) Urine pH (5.0-9.0) Ur Specific [place] (1.001-1.035) Urine Protein (Negative) mg/dL Urine Glucose (UA) (Negative) mg/dL Urine Ketones (Negative) mg/dL Ur Blood (Man) (Negative) Urine Nitrate (Negative) Urine Bilirubin (Negative) Urine Urobilinogen (<2.0) mg/dL Add Ur Microanalysis Leukocyte Esterase Rfl (Negative) LIANA/UL Urine RBC (0-2) /hpf Urine WBC (0-3) /hpf Ur Squamous Epith Cells (Few) /hpf Urine Bacteria /hpf Urine Casts POC Urine HCG, Qual (Negative) Ethyl Alcohol (<10) mg/dL Discharge Plan Discharge Clinical Impression: Altered mental status Patient Disposition: Home Condition: Stable Instructions: Altered Mental Status (ED) Additional Instructions: You can try taking the new seizure medication as prescribed, please try to cut back on your alcohol use, and please follow up with your neck band setter and a neurologist. You can always return to the ER if you change your mind about being admitted or if anything changes. Patient Language: Filipino Prescriptions: New levetiracetam [Keppra] 500 mg tablet 500 mg PO BID Qty: 60 0RF No Action alprazolam 0.5 mg tablet 0.5 mg BID amlodipine 2.5 mg tablet 2.5 mg PO DAILY hydrocodone-acetaminophen 7.5-325 mg tablet 1 tablet QID carvedilol 6.25 mg tablet 6.25 mg DAILY clindamycin HCl 300 mg capsule 300 mg PO Q6H 10 Days Qty: 40 0RF prednisone 50 mg tablet 50 mg PO DAILY 5 Days Qty: 5 0RF Follow-up/Referrals: PHYSICIAN,MAJOR GIFTS OFFICER [Primary Care Provider] -
== END 2024-06-30 23:42 | disposition home or self-care (01) ==
PROVIDERS: Emergency Provider Emergency Medicine
DX: R41.82 Altered mental status, unspecified (principal); J44.9 Chronic obstructive pulmonary disease, unspecified; I10 Essential (primary) hypertension; Z79.899 Other long term (current) drug therapy; I45.10 Unspecified right bundle-branch block
CPT/HCPCS: 36415; 70450; 70496; 70498; 80053; 81001; 81025; 82077; 82948; 84484; 85025; 85610; 85730; 93005; 96374; 99284; J2060; Q9967